=== PATIENT | male | born 1955 | race Caucasian/White ===

== ENCOUNTER 2016-08-16 16:15 | Inpatient (IN) | payer MEDICAID, OTHER ==
[~2016-08-16] VITALS: Ht 198.1 cm; Wt 111.8 kg
[~2016-08-16 16:15] MED LIST: AMIODARONE HCL 150 MG/3 ML VIAL IV ONE; DICL-86 PO; EPINEPHrine HCL (1:10,000) 1 MG/10 ML SYRINGE IV ONE; MAGNESIUM SULFATE 40 MEQ/10 ML VIAL IV ONE; METH500T3 PO; TAB-TAB PO; ZOCO40TA PO
[2016-08-16 16:17] VITALS: BP 146/97; PULSE 89; RESP 22; TEMP 98.3; O2SAT 100
[2016-08-16] MEDS ORDERED: SODIUM CHLOR 0.9% 1000 ML INJ 1,000 ML IV ONE (16:18)
[2016-08-16] MEDS ORDERED: MORPHINE SULFATE 8 MG/ML INJ ONE (16:18)
[2016-08-16] MEDS ORDERED: HEPARIN SODIUM - IV 10,000 UNITS/10 ML VIAL IV STA (16:18)
[2016-08-16] MEDS ORDERED: ASPIRIN 81 MG CHEW TAB ONE (16:19)
[2016-08-16] MEDS ORDERED: HEPARIN SODIUM - IV 10,000 UNITS/10 ML VIAL ONE ×2 (16:19→16:39)
--- NOTE | 2016-08-16 16:28 | PD ---
HPI Chief Complaint: STEMI Alert Time Seen by Provider: 16:18 Travel History International Travel<30 days: No Contact w/Intl Traveler<30days: No Traveled to known affect area: No History of Present Illness HPI The patient's 60 years old. He arrives by EMS due to one hour of chest pressure. He describes some radiation of the chest pressure to his neck. There is a crampy quality noted as well. In the ER the patient states the pain is 5/10. It's unclear what was relayed to the EMS with regard to severity. The patient ate chicken and waffles this morning. He felt indigestion afterwards. He reports a one pack per day smoking history. He reports diet controlled diabetes with a blood sugar of approximately 450 per EMS. Upon the patient's arrival to the ER STEMI alert was activated. Cardiopulmonary monitoring and pulse oximetry was initiated along with bilateral upper extremity axis. Case was discussed with Dr. Ashby at 1625 who agreed to pursue catheterization. Upon returning to the pt's room the patient was awake and then complained of feeling hot and then developed ventricular fibrillation. Pacer pads were already on and the patient was shocked at 200 J. He immediately regained consciousness and the pulse was about 100 and irregular. Last blood pressure prior to ER Department or to the Iv Therapy Nurse was 213/110. Heparin was transfused. The patient received aspirin. En route to the Iv Therapy Nurse the patient again had an episode of ventricular fibrillation lasting about 5 seconds or so. He was conscious during the episode. Upon arrival to the Iv Therapy Nurse the patient again went into ventricular fibrillation. He was shocked at 360 J and immediately regained consciousness. Continuous cardiopulmonary oximetry was maintained. The patient's nasal cannula was increased to 15 L/m. Throughout the precatheterization course the patient had approximately 9 episodes of ventricular fibrillation and promptly received chest compressions while the monitor was charging and prior to and after electrical defibrillations. A second IV was placed in the right hand after the right antecubital access was lost due to agitation. Soft restraints were applied. At approximately 1715 the patient was intubated after he remained unresponsive for about 30 or 40 seconds while chest compressions were performed. Etomidate and succinylcholine were used. While in the catheterization lab the patient received 2 g of magnesium additionally he received [address] Ashby arrived to the catheterization lab minutes after the intubation was performed. The patient received lidocaine and was prepped for the catheterization, which commenced essentially immediately thereafter. [facility] Past Medical History Cancer: No Cardiovascular Problems: Yes High Cholesterol: Yes Diabetes: Yes Patient Takes Glucophage: No Diminished Hearing: No Diverticulitis: Yes Endocrine: Yes Gastrointestinal Disorders: Yes (DIVERTICULITIS) Genitourinary: No Immune Disorder: No Musculoskeletal: No Neurologic: No Psychiatric: No Reproductive: No Respiratory: No Sickle Cell Disease: No Tetanus Vaccination: Unknown Past Surgical History Abdominal Surgery: Yes (removal of sigmoid colon due to diverticulitis) Other Surgery: Yes Social History Alcohol Use: No (DENIES) Tobacco Use: Yes (1 PPD) Substance Use: No Allergies-Medications (Allergen,Severity, Reaction): Coded Allergies: Codeine (Verified Allergy, Intermediate, ITHCHING, 08/16/16) Percocet (Verified Allergy, Intermediate, ITCHING, 08/16/16) Dilaudid (Verified Adverse Reaction, Severe, HALLUCINATIONS, 08/16/16) Contrast Media (Verified Adverse Reaction, Intermediate, RASH, SKIN PEELING, 08/16/16) Reported Meds & Prescriptions Reported Meds & Active Scripts Active No Active Prescriptions or Reported Medications Review of Systems ROS Limitations: Clinical Condition Physical Exam Narrative GENERAL: 60-year-old male well-nourished well-developed moderate distress SKIN: Warm with diaphoresis. HEAD: Atraumatic. Normocephalic. EYES: Pupils equal and round. No scleral icterus. No injection or drainage. ENT: No nasal bleeding or discharge. Mucous membranes pink and moist. NECK: Trachea midline. Minimal JVD. CARDIOVASCULAR: Irregular. Tachycardia. RESPIRATORY: Speaking in short sentences. Lung sounds present bilaterally. GASTROINTESTINAL: Abdomen soft, non-tender, nondistended. Hepatic and splenic margins not palpable. MUSCULOSKELETAL: Extremities without clubbing, cyanosis, or edema. No obvious deformities. NEUROLOGICAL: Awake and alert. No obvious cranial nerve deficits. Motor grossly within normal limits. Five out of 5 muscle strength in the arms and legs. Normal speech. PSYCHIATRIC: Appropriate anxiety. Data Data Last Documented VS Vital Signs Date Time Temp Pulse Resp B/P Pulse Ox O2 Delivery O2 Flow Rate FiO2 08/16/16 16:35 113 200/110 08/16/16 16:35 Nasal Cannula 2 08/16/16 16:30 24 96 08/16/16 16:17 98.3 VS reviewed Orders Morphine Inj (Morphine Inj) (08/16/16 16:18) Heparin Inj (Heparin Inj) (08/16/16 16:19) Troponin I (08/16/16 16:18) Ckmb (Isoenzyme) Profile (08/16/16 16:18) Complete Blood Count With Diff (08/16/16 16:18) I-Stat Profile (08/16/16 16:18) I-Stat Creatinine (08/16/16 16:18) Calcium (08/16/16 16:18) Magnesium (Mg) (08/16/16 16:18) Prothrombin Time / Inr (Pt) (08/16/16 16:18) Act Partial Throm Time (Ptt) (08/16/16 16:18) B-Type Natriuretic Peptide (08/16/16 16:18) Chest, Single Ap (08/16/16 16:18) Electrocardiogram (08/16/16 16:18) Oxygen Administration (08/16/16 16:18) Iv Access Insert/Monitor (08/16/16 16:18) Oximetry (08/16/16 16:18) Sodium Chlor 0.9% 1000 Ml Inj (Ns 1000 M (08/16/16 16:18) Sodium Chloride 0.9% Flush (Ns Flush) (08/16/16 16:30) Heparin Inj (Heparin Inj) (08/16/16 16:18) Metoprolol Tartrate Inj (Lopressor Inj) (08/16/16 16:30) Aspirin Chew (Aspirin Chew) (08/16/16 16:19) Etomidate Inj (Amidate Inj) (08/16/16 16:35) Succinylcholine Inj (Quelicin Inj) (08/16/16 16:36) Heparin-Ns/Pf Inj (Heparin-Ns/Pf Inj) (08/16/16 16:36) Diphenhydramine Inj (Benadryl Inj) (08/16/16 16:38) Fentanyl Inj (Fentanyl Inj) (08/16/16 16:38) Midazolam Inj (Versed Inj) (08/16/16 16:38) Methylprednisolone So Succ Inj (Solumedr (08/16/16 16:38) Heparin Inj (Heparin Inj) (08/16/16 16:39) Nitroglycerin Inj (Nitroglycerin Inj) (08/16/16 16:39) Admit Order (Ed Use Only) (08/16/16 17:17) CKMB (08/16/16 16:20) CKMB% (08/16/16 16:20) Labs Laboratory Tests Test 08/16/16 16:20 White Blood Count 9.3 TH/MM3 Red Blood Count 5.03 MIL/MM3 Hemoglobin 17.1 GM/DL Bedside Hemoglobin 17.3 G/DL Hematocrit 48.6 % Bedside Hematocrit 51.0 % Mean Corpuscular Volume 96.5 FL Mean Corpuscular Hemoglobin 34.0 PG Mean Corpuscular Hemoglobin 35.2 % Concent Red Cell Distribution Width 13.9 % Platelet Count 176 TH/MM3 Mean Platelet Volume 8.3 FL Neutrophils (%) (Auto) 57.6 % Lymphocytes (%) (Auto) 31.6 % Monocytes (%) (Auto) 8.8 % Eosinophils (%) (Auto) 1.3 % Basophils (%) (Auto) 0.7 % Neutrophils # (Auto) 5.3 TH/MM3 Lymphocytes # (Auto) 2.9 TH/MM3 Monocytes # (Auto) 0.8 TH/MM3 Eosinophils # (Auto) 0.1 TH/MM3 Basophils # (Auto) 0.1 TH/MM3 CBC Comment DIFF FINAL Differential Comment Prothrombin Time 11.3 SEC Prothromb Time International 1.0 RATIO Ratio Activated Partial 28.1 SEC Thromboplast Time Bedside Sodium 135 MMOL/L Bedside Potassium 4.3 MMOL/L Bedside Chloride 102 MMOL/L Bedside Blood Urea Nitrogen 20 MG/DL Bedside Creatinine 0.9 MG/DL Bedside Glucose 471 MG/DL Calcium Level 9.1 MG/DL Magnesium Level 2.2 MG/DL Total Creatine Kinase 114 U/L Creatine Kinase MB 3.3 NG/ML Troponin I 0.12 NG/ML B-Type Natriuretic Peptide 67 PG/ML [facility] Medical Decision Making Medical Screen Exam Complete: Yes Emergency Medical Condition: Yes Medical Record Reviewed: Yes Differential Diagnosis STEMI, unstable angina, coronary vasospasm, PE, PTX, aortic dissection, pericarditis, myocarditis, endocarditis, PNA, esophageal disease, aneurysm, musculoskeletal etiologies, anxiety, cocaine/sympathomimetic abuse Narrative Course CBC & BMP Diagram 08/16/16 16:20 EKG reveals atrial fibrillation with ST elevations in precordial leads and inferior leads consistent with acute myocardial infarction, rate about 148 Troponin 0.12 BNP 67 Last 24 hours Impressions Chest X-Ray 08/16/16 1618 Signed Impressions: Service Date/Time: Tuesday, August 16, 2016 16:15 - CONCLUSION: No acute cardiopulmonary disease. Cristela Maldonado MD Please refer to the history of present illness. Critical Care Narrative Aggregate critical care time was 50 minutes. Time to perform other separately billable procedures was not included in the critical care time. My time did not include minutes spent treating any other patients simultaneously or on activities that did not directly contribute to the patient's treatment. The services I provided to this patient were to treat and/or prevent clinically significant deterioration that could result in: Cardiopulmonary arrest, mortality I provided critical care services requiring my management, as noted below: Chart data review, documentation time, medication orders and management, vital sign assessments/reviewing monitor data, ordering and reviewing lab tests, ordering and interpreting/reviewing x-rays and diagnostic studies, care of the patient and discussion of the patient with the admitting physicians. Physician Communication Physician Communication Dr Ashby [id number] Diagnosis Primary Impression: STEMI (ST elevation myocardial infarction) Qualified Code: I21.3 - ST elevation myocardial infarction (STEMI), unspecified artery Additional Impressions: Cardiac arrest with ventricular fibrillation Cardiopulmonary arrest Admitting Information Admitting Physician Requests: Admit Scripts No Active Prescriptions or Reported Sean Salvador MD Aug 16, 2016 16:28
[2016-08-16 16:30] VITALS: BP 200/115
[2016-08-16] MEDS ORDERED: SODIUM CHLORIDE 0.9% FLUSH 10 ML FLUSH IVF PRN (16:30)
[2016-08-16] MEDS: METOPROLOL TARTRATE 5 MG/5 ML VIAL SLOW IVP SCH ×3 (16:30→16:40)
[2016-08-16 16:35] VITALS: BP 200/110; PULSE 113
[2016-08-16] MEDS ORDERED: ETOMIDATE 20 MG/10 ML VIAL ONE (16:35)
[2016-08-16] MEDS ORDERED: HEPARIN-NS/PF INJ 500 ML ONE (16:36)
[2016-08-16] MEDS ORDERED: SUCCINYLCHOLINE CHLORIDE 200 MG/10 ML VIAL ONE (16:36)
[2016-08-16] MEDS ORDERED: methylPREDNISolone SOD SUCC 125 MG/2 ML VIAL ONE (16:38)
[2016-08-16] MEDS ORDERED: MIDAZOLAM HCL 5 MG/5 ML VIAL ONE ×9 (16:38→18:46)
[2016-08-16] MEDS ORDERED: diphenhydrAMINE HCL 50 MG/ML VIAL ONE (16:38)
[2016-08-16] MEDS ORDERED: NITROGLYCERIN INJ 5 ML ONE (16:39)
[2016-08-16 16:42] LABS: I-STAT POTASSIUM 4.3 MMOL/L (3.5-4.9); I-STAT SODIUM 135 MMOL/L (138-146)
[2016-08-16] MEDS ORDERED: IOHEXOL 350 MG/ML 50 ML BTL (for Cath Lab) OTHER ONE (16:42)
[2016-08-16] MEDS ORDERED: IOHEXOL 350 MG/ML 100 ML BTL (for Cath Lab) OTHER ONE (16:42)
[2016-08-16 16:43] LABS: AUTOMATED NEUTROPHIL # 5.3 TH/MM3 (1.8-7.7); BASOPHIL # 0.1 TH/MM3 (0-0.2); BASOPHIL % 0.7 % (0.0-2.0); EOSINOPHIL # 0.1 TH/MM3 (0-0.4); EOSINOPHIL % 1.3 % (0.0-4.0); HEMATOCRIT 48.6 % (39.0-51.0); HEMO FLAGS DIFF FINAL; LYMPH % 31.6 % (9.0-44.0); LYMPHOCYTE # 2.9 TH/MM3 (1.0-4.8); MEAN CELL VOLUME 96.5 FL (80.0-100.0); MEAN CORPUSCULAR HGB CONC 35.2 % (32.0-36.0); MONO % 8.8 % (0.0-8.0); NEUT % 57.6 % (16.0-70.0); PLATELET COUNT 176 TH/MM3 (150-450); RED BLOOD COUNT 5.03 MIL/MM3 (4.50-5.90); RED CELL DISTRIBUTION WIDTH 13.9 % (11.6-17.2); WHITE BLOOD COUNT 9.3 TH/MM3 (4.0-11.0)
[2016-08-16 16:53] LABS: APTT (PATIENT) 28.1 SEC (24.3-30.1); PROTHROMBIN TIME - PATIENT 11.3 SEC (9.8-11.6)
--- NOTE | 2016-08-16 16:53 | RADRPT ---
EXAM DATE/TIME: 08/16/2016 16:15 [facility] COMPARISON: No previous studies available for comparison. INDICATIONS : Stemi Alert MEDICAL HISTORY : None. SURGICAL HISTORY : None. ENCOUNTER: Initial ACUITY: 1 day PAIN SCORE: 10/10 LOCATION: Bilateral chest FINDINGS: The lungs are clear without infiltrate, nodule, or mass. There is no appreciable pleural effusion fo r technique. Heart and mediastinum are unremarkable. CONCLUSION: No acute cardiopulmonary disease. Cristela Maldonado MD on August 16, 2016 at 16:51 Board Certified Radiologist. This report was verified electronically.
[2016-08-16 17:15] LABS: MAGNESIUM 2.2 MG/DL (1.5-2.5)
[2016-08-16 17:27] LABS: CREATINE KINASE 114 U/L (39-308)
[2016-08-16] MEDS ORDERED: DOPamine INJ PREMIX 500 ML ONE (17:32)
[2016-08-16 17:40] LABS: CKMB 3.3 NG/ML (0.5-3.6)
[2016-08-16] MEDS ORDERED: fentaNYL CITRATE 250 MCG/5 ML AMP ONE (17:41)
[2016-08-16] MEDS ORDERED: CANGRELOR TETRASODIUM 50,000 MCG VIAL IV ONE (17:47)
[2016-08-16] MEDS ORDERED: SODIUM CHLOR 0.9% 250 ML INJ 250 ML ONE (17:54)
[2016-08-16] MEDS ORDERED: VANCOMYCIN HCL 1000 MG VIAL ONE (17:54)
[2016-08-16] MEDS: SODIUM CHLOR 0.9% 1000 ML INJ 1,000 ML IV SCH ×2 (18:37→20:26)
[2016-08-16] MEDS ORDERED: PROPOFOL 500 MG/50 ML INJ 50 ML ONE (18:43)
[2016-08-16] MEDS ORDERED: TICAGRELOR 90 MG TAB PO ONE (18:45)
[2016-08-16] MEDS ORDERED: ATROPINE SULFATE 1 MG/ML VIAL IV PRN (18:45)
[2016-08-16] MEDS ORDERED: ONDANSETRON HCL 4 MG/2 ML VIAL IV PRN ×2 (18:45→19:00)
[2016-08-16] MEDS ORDERED: MISC INFORMATION XX ONE (18:45)
[2016-08-16 18:46] LABS: BLOOD GAS CARBOXYHEMOGLOBIN 1.7 % (0-4); BLOOD GAS HCO3 18 mmol/L (22-26); BLOOD GAS METHEMOGLOBIN 1.4 % (0-2); BLOOD GAS O2 HGB SATURATION 97 % (90-100); BLOOD GAS OXYGEN CONTENT 21.8 Vol % (12.0-20.0); BLOOD GAS PCO2 43 mmHg (38-42); BLOOD GAS PO2 384 mmHg (61-120); BLOOD GAS TOTAL HGB 15.4 G/DL (12.0-16.0); CRITICAL VALUE YES; OXYGEN DEVICE VENTILATOR; TEMP CORR TO 98.6
[2016-08-16 18:47] LABS: DRAW SITE ART LINE; FIO2 100 %; STAT YES; VENT SETTINGS A/C 16/550/0 PEEP
[2016-08-16] MEDS ORDERED: MORPHINE SULFATE 4 MG/ML INJ IV PRN (19:00)
[2016-08-16] MEDS ORDERED: MISCELLANEOUS NURSING INFORMATION XX SCH (19:00)
[2016-08-16] MEDS ORDERED: MIDAZOLAM HCL 2 MG/2 ML VIAL IV PRN (19:00)
[2016-08-16] MEDS ORDERED: CHLORHEXIDINE GLUCONATE 2 % 1 PACK (2 CLOTHS) TOP PRN (19:00)
[2016-08-16] MEDS ORDERED: METOCLOPRAMIDE HCL 10 MG/2 ML VIAL IV PRN (19:00)
[2016-08-16] MEDS ORDERED: SENNOSIDES SYRUP 8.8 MG/5 ML CUP G-TUBE PRN (19:00)
[2016-08-16] MEDS ORDERED: CANGRELOR INJ 50,000 MCG in SODIUM CHLOR 0.9% 250 ML INJ 250 ML IV ONE (19:00)
[2016-08-16] MEDS ORDERED: fentaNYL DRIP 250 ML IV SCH (19:00)
--- NOTE | 2016-08-16 19:09 | MB ---
cc: SHARI PINK DATE OF CONSULTATION: 08/16/2016. REASON FOR CONSULTATION: STEMI. HISTORY OF PRESENT ILLNESS: 60-year-old male with past medical history significant for hypertension, active smoker, obesity who presented to the emergency department from home via EMS with chest pressure that radiated to his neck. EKG rhythm revealed atrial fibrillation with rapid ventricular response and S-T elevation in the inferior leads suggestive of myocardial injury. A STEMI team was activated. Before getting to the label designer the patient coded in the emergency department and subsequently in route to the label designer. The patient had approximately 10 episodes of ventricular fibrillation, which were successfully shocked, CPR given. He was intubated. The patient regained spontaneous circulation. Cardiology has been consulted for further management and evaluation. REVIEW OF SYSTEMS: Review of systems negative except for what is mentioned in the history of present illness. PAST MEDICAL HISTORY: 1. Hypertension. 2. Obesity. 3. Smoking. 4. Diverticulitis. PAST SURGICAL HISTORY: Removal of the sigmoid colon due to diverticulitis. SOCIAL HISTORY: No alcohol. He smokes. No illicit drug use. HOME MEDICATIONS: None. ALLERGIES: 1. CODEINE. 2. PERCOCET. 3. DILAUDID. 4. CONTRAST MEDIA. PHYSICAL EXAMINATION: VITAL SIGNS: 98.3, pulse 89, respiratory rate 22, blood pressure 146/97. GENERAL: He is sedated and intubated and in no acute distress. NECK: No jugular venous distention. No carotid bruits. HEART: Tachycardic. No murmurs, rubs or gallops. LUNGS: Ventilated. ABDOMEN: Obese. Positive bowel sounds. Soft, nontender and nondistended. EXTREMITIES: Cold. Diminished pulses throughout. LABORATORY DATA: Hemoglobin 17, hematocrit 48, platelet count 176,000. INR 1. Sodium 135, potassium 4.3, creatinine 0.9, BUN 20, glucose 471. Troponin 0.12. BNP 67. IMAGING STUDIES: Chest x-ray: No acute cardiopulmonary process. EKGS: EKG shows atrial fibrillation with rapid ventricular response. He also has S-T segment elevation in the inferior leads. ASSESSMENT AND PLAN: 60-year-old male with cardiac risk factors that include hypertension, active smoking and obesity who presented with inferior S-T elevation WI and cardiogenic shock and ventricular fibrillation arrest. The patient is critically ill and he will need emergent percutaneous coronary intervention. The risks and benefits of left heart catheterization / percutaneous coronary intervention have been discussed with the family. The risks include but are not limited to neurovascular trauma, bleeding, infection, acute kidney injury, emergent bypass surgery, stroke and have been explained to the family. The understands the risks and she is willing to proceed. RECOMMENDATIONS: 1. Emergent percutaneous coronary intervention. 2. Continue supportive management. Further therapy to be determined. MD GRISELDA Llamas/NORY /6:47 PM /6:59 PM ARTURO
[2016-08-16] MEDS ORDERED: GLUCAGON 1 MG/ML VIAL OTHER PRN (19:15)
[2016-08-16] MEDS ORDERED: DEXTROSE 50% IN WATER 50 ML VIAL(D50) IV PUSH PRN (19:15)
[2016-08-16] MEDS ORDERED: PHENYLEPHRINE HCL 10 MG/ML VIAL ONE ×2 (19:29)
[2016-08-16] MEDS ORDERED: PHENYLEPH/NS 1000 MCG/10 ML SYR ONE (19:30)
[2016-08-16 19:58] VITALS: O2SAT 100
[2016-08-16 20:00] VITALS: BP_SYST 116; BP_SYST 124; BP_DIAS 68; BP_DIAS 83; PULSE 110; PULSE 99; RESP 18; TEMP 95.2; O2SAT 100
[2016-08-16] MEDS: LORazepam 2 MG/ML VIAL IV PUSH SCH (20:00)
[2016-08-16] MEDS ORDERED: LORazepam 2 MG/ML VIAL IV PUSH ONE (20:00)
--- NOTE | 2016-08-16 20:08 | HHI.HP ---
[facility] Service Critical Care Medicine Primary Care Physician Cleveland Spencer MD, PhD Admission Diagnosis STEMI, VFib Arrest, Cardiopulmonary Arrest, Hyperglycemia Diagnosis: Chief Complaint: STEMI, cardiac arrest Travel History International Travel<30 Days: No Contact w/Intl Traveler <30 Da: No Traveled to Known Affected Are: No History of Present Illness 60 y/o man presented with chest pain, arrested in ED -> lab systems analyst where rescue stent RCA with reperfusion v-fib requiring shock X 9 total. Intubated, ventilated. Escorted to CVICU on vent. Cangrelor finished and Brilinta given down NG tube after 6 minutes from ceasing cangrelor. Patient with NSR at 108, moves 4 limbs with purpose. VERY tolerant to sedation - probable ETOH Hx. Loaded with ativan and scheduled. Will start precedex in a.m. for vent weaning and withdrawal prophylaxis (once we are sure he is not having any more bradycardia problems). Past Family Social History Allergies: Coded Allergies: Codeine (Verified Allergy, Intermediate, ITHCHING, 08/16/16) Percocet (Verified Allergy, Intermediate, ITCHING, 08/16/16) Dilaudid (Verified Adverse Reaction, Severe, HALLUCINATIONS, 08/16/16) Contrast Media (Verified Adverse Reaction, Intermediate, RASH, SKIN PEELING, 08/16/16) Past Medical History Past Medical History Cancer: No Cardiovascular Problems: Yes High Cholesterol: Yes Diabetes: Yes Patient Takes Glucophage: No Diminished Hearing: No Diverticulitis: Yes Endocrine: Yes Gastrointestinal Disorders: Yes (DIVERTICULITIS) Genitourinary: No Immune Disorder: No Musculoskeletal: No Neurologic: No Psychiatric: No Reproductive: No Respiratory: No Sickle Cell Disease: No Tetanus Vaccination: Unknown Past Surgical History Abdominal Surgery: Yes (removal of sigmoid colon due to diverticulitis) Other Surgery: Yes Social History Alcohol Use: No (DENIES) Tobacco Use: Yes (1 PPD) Substance Use: No Allergies-Medications Allergies-Medications (Allergen,Severity, Reaction): Coded Allergies: Codeine (Verified Allergy, Intermediate, ITHCHING, 08/16/16) Percocet (Verified Allergy, Intermediate, ITCHING, 08/16/16) Dilaudid (Verified Adverse Reaction, Severe, HALLUCINATIONS, 08/16/16) Contrast Media (Verified Adverse Reaction, Intermediate, RASH, SKIN PEELING, 4/29/17) Reported Meds & Prescriptions Reported Meds & Active Scripts Active No Active Prescriptions or Reported Medications Physical Exam Vital Signs Vital Signs Date Time Temp Pulse Resp B/P Pulse Ox O2 Delivery O2 Flow Rate FiO2 08/16/16 16:35 113 200/110 08/16/16 16:35 Nasal Cannula 2 08/16/16 16:30 87 24 200/115 96 Nasal Cannula 4 08/16/16 16:26 98 Nasal Cannula 2 08/16/16 16:17 98.3 89 22 146/97 100 Physical Exam P 108, BP 123/72, R 18 vent, sats 97% Head: Normal. Neck: Supple, orally intubated. Lungs: Bilateral crackles, no wheezes. Heart: Tachycardia, RRR. Abdomen: Benign, no guarding. Quiet. Extremities: Toes and fingers blue. Cool. Neuro: Moves 4 limbs with purpose. EDWIN, 2 mm bee. Laboratory Laboratory Tests Test 08/16/16 08/16/16 16:20 18:35 White Blood Count 9.3 Red Blood Count 5.03 Hemoglobin 17.1 Bedside Hemoglobin 17.3 Hematocrit 48.6 Bedside Hematocrit 51.0 Mean Corpuscular Volume 96.5 Mean Corpuscular Hemoglobin 34.0 Mean Corpuscular Hemoglobin 35.2 Concent Red Cell Distribution Width 13.9 Platelet Count 176 Mean Platelet Volume 8.3 Neutrophils (%) (Auto) 57.6 Lymphocytes (%) (Auto) 31.6 Monocytes (%) (Auto) 8.8 Eosinophils (%) (Auto) 1.3 Basophils (%) (Auto) 0.7 Neutrophils # (Auto) 5.3 Lymphocytes # (Auto) 2.9 Monocytes # (Auto) 0.8 Eosinophils # (Auto) 0.1 Basophils # (Auto) 0.1 CBC Comment DIFF FINAL Differential Comment Prothrombin Time 11.3 Prothromb Time International 1.0 Ratio Activated Partial 28.1 Thromboplast Time Bedside Sodium 135 Bedside Potassium 4.3 Bedside Chloride 102 Bedside Blood Urea Nitrogen 20 Bedside Creatinine 0.9 Bedside Glucose 471 Calcium Level 9.1 Magnesium Level 2.2 Total Creatine Kinase 114 Creatine Kinase MB 3.3 Troponin I 0.12 B-Type Natriuretic Peptide 67 Blood Gas Puncture Site ART LINE Blood Gas Patient Temperature 98.6 Blood Gas HCO3 18 Blood Gas Base Excess -8.0 Blood Gas Oxygen Saturation 97 Arterial Blood pH 7.25 Arterial Blood Partial 43 Pressure CO2 Arterial Blood Partial 384 Pressure O2 Arterial Blood Oxygen Content 21.8 Arterial Blood 1.7 Carboxyhemoglobin Arterial Blood Methemoglobin 1.4 Blood Gas Hemoglobin 15.4 Oxygen Delivery Device VENTILATOR Blood Gas Ventilator Setting A/C 16/550/0 PEEP Blood Gas Inspired Oxygen 100 Result Diagram: 08/16/16 1620 Assessment and Plan Assessment and Plan Assessment: 1. Complicated STEMI. 2. Cardiac arrest. 3. Rescue PCI RCA. 4. Ventricular fibrillation. 5. ETOH habituation. 6. Respiratory failure. Plan: 1. PRVC vent. 2. Propofol. 3. Ativan for detox. 4. Protonix. 5. Brilinta after cangrelor stopped. 6. No scd - poor perfusion. 7. Electrolyte protocol. 8. NG. Overall impression: Critically ill and ventilator dependent after cardiac arrest from RCA STEMI. Elevated glucose and ETOH hx further complicate care. Critical Care 60 mins aside from procedures Gilmer Aj MD Aug 16, 2016 20:08
--- NOTE | 2016-08-16 20:10 | PD.PROCEDR ---
Procedure Note Procedure DX: Cardiac Arrest OP: Insertion Left Subclavian Central Venous Line ([id number]) Procedure: Left chest prepped and draped. Left subclavian vein cannulated and wire easily advanced. Catheter passed over wire to 18 cm. Lumens aspirated and flushed. Dressing applied. CXR ordered, will review. Gilmer Aj MD Aug 16, 2016 20:10
--- NOTE | 2016-08-16 20:40 | RADRPT ---
EXAM DATE/TIME: 08/16/2016 20:03 [facility] COMPARISON: CHEST SINGLE AP, August 16, 2016, 16:15. INDICATIONS : ET tube and central line placement. MEDICAL HISTORY : None. SURGICAL HISTORY : None. ENCOUNTER: Subsequent ACUITY: 1 day PAIN SCORE: Non-responsive. LOCATION: Bilateral chest FINDINGS: ET tube is present with tip overlapping approximately 3 cm above the pratik. NG tube is present with tip in the stomach. Left subclavian line is present with tip overlapping the expected region of the S VC. No definite pneumothorax is seen for technique. The lungs are clear without infiltrate, nodule, o r mass. There is no appreciable pleural effusion for technique. Heart and mediastinum are unremarka ble. CONCLUSION: No acute cardiopulmonary disease. Cristela Maldonado MD on August 16, 2016 at 20:38 Board Certified Radiologist. This report was verified electronically.
[2016-08-16] MEDS: PROPOFOL 1000 MG/100 ML INJ 100 ML IV SCH ×3 (21:00→23:00)
[2016-08-16] MEDS: ATORVASTATIN 80 MG TAB PO SCH (21:45)
[2016-08-16] MEDS: INSULIN ASPART SUPPLEMENTAL SCALE SQ SCH (21:45)
[2016-08-16] MEDS ORDERED: FAMOTIDINE 20 MG/2 ML VIAL ONE (21:50)
[2016-08-16] MEDS: PANTOPRAZOLE SODIUM 40 MG VIAL IV SCH (21:53)
[2016-08-16 22:45] VITALS: O2SAT 99
[2016-08-16] MEDS: RESP: ALBUTEROL 2.5 MG/IPRATROPIUM 0.5 MG NEB (PRN) INH (22:47)
[2016-08-17] VITALS (12 sets, daily range): BP systolic 110–144; BP diastolic 56–89; PULSE 92–100; RESP 18–23; TEMP 97–98.3; O2SAT 96–99
[2016-08-17 00:05] LABS: CREATINE KINASE 739 U/L (39-308)
[2016-08-17] MEDS: LORazepam 2 MG/ML VIAL IV PUSH SCH ×5 (00:28→16:52)
[2016-08-17] MEDS: INSULIN ASPART SUPPLEMENTAL SCALE SQ SCH ×5 (00:33→23:45)
[2016-08-17] MEDS: PROPOFOL 1000 MG/100 ML INJ 100 ML IV SCH ×3 (00:42→06:40)
[2016-08-17 00:43] LABS: CKMB 125.1 NG/ML (0.5-3.6)
[2016-08-17] MEDS: RESP: ALBUTEROL 2.5 MG/IPRATROPIUM 0.5 MG NEB (PRN) INH ×2 (03:33→21:05)
[2016-08-17] MEDS: CHLORHEXIDINE GLUCONATE 2 % 1 PACK (2 CLOTHS) TOP SCH (03:42)
--- NOTE | 2016-08-17 04:26 | RADRPT ---
EXAM DATE/TIME: 08/17/2016 03:36 [facility] COMPARISON: CHEST SINGLE AP, August 16, 2016, 20:03. INDICATIONS : Shortness of breath, possible pulmonary disease. MEDICAL HISTORY : None. SURGICAL HISTORY : None. ENCOUNTER: Subsequent ACUITY: 3 days PAIN SCORE: Non-responsive. LOCATION: Bilateral chest FINDINGS: No infiltrate demonstrated. No pleural effusion or pneumothorax. Heart size stable, within normal limits. Endotracheal tube tip is approximately 5 cm above the pratik, not significantly changed. There is a n asogastric tube coiled in the stomach and a left subclavian central venous catheter with tip in the s uperior vena cava. CONCLUSION: No significant change. Lungs remain clear. Barber Colon MD on August 17, 2016 at 4:23 Board Certified Radiologist. This report was verified electronically.
[2016-08-17] MEDS: SODIUM CHLOR 0.9% 1000 ML INJ 1,000 ML IV SCH ×3 (04:37→17:49)
[2016-08-17 04:43] LABS: BLOOD GAS CARBOXYHEMOGLOBIN 1.3 % (0-4); BLOOD GAS HCO3 18 mmol/L (22-26); BLOOD GAS METHEMOGLOBIN 1.4 % (0-2); BLOOD GAS O2 HGB SATURATION 96 % (90-100); BLOOD GAS OXYGEN CONTENT 20.7 Vol % (12.0-20.0); BLOOD GAS PCO2 36 mmHg (38-42); BLOOD GAS PO2 124 mmHg (61-120); BLOOD GAS TOTAL HGB 15.2 G/DL (12.0-16.0); CRITICAL VALUE NO; OXYGEN DEVICE VENTILATOR; TEMP CORR TO 98.6
[2016-08-17 04:44] LABS: DRAW SITE ART LINE; FIO2 40 %; STAT NO; VENT SETTINGS PRVC/AC
[2016-08-17 04:56] LABS: AUTOMATED NEUTROPHIL # 11.5 TH/MM3 (1.8-7.7); BASOPHIL % 0.2 % (0.0-2.0); HEMATOCRIT 44.9 % (39.0-51.0); HEMO FLAGS DIFF FINAL; LYMPH % 5.6 % (9.0-44.0); LYMPHOCYTE # 0.7 TH/MM3 (1.0-4.8); MEAN CELL VOLUME 97.3 FL (80.0-100.0); MEAN CORPUSCULAR HEMOGLOBIN 33.2 PG (27.0-34.0); MEAN CORPUSCULAR HGB CONC 34.1 % (32.0-36.0); MONO % 2.6 % (0.0-8.0); NEUT % 91.6 % (16.0-70.0); PLATELET COUNT 165 TH/MM3 (150-450); RED BLOOD COUNT 4.61 MIL/MM3 (4.50-5.90); RED CELL DISTRIBUTION WIDTH 13.7 % (11.6-17.2); WHITE BLOOD COUNT 12.6 TH/MM3 (4.0-11.0)
[2016-08-17 05:23] LABS: ALKALINE PHOSPHATASE 99 U/L (45-117); ALT (GPT) 258 U/L (12-78); ANION GAP 9 MEQ/L (5-15); AST (GOT) 411 U/L (15-37); BICARBONATE 20.5 MEQ/L (21.0-32.0); BLOOD UREA NITROGEN 14 MG/DL (7-18); CHLORIDE 112 MEQ/L (98-107); GLOMERULAR FILTRATION RATE 98 ML/MIN (>89); HDL CHOLESTEROL 27.9 MG/DL (40.0-60.0); LDL CHOLESTEROL 110 MG/DL (0-99); MAGNESIUM 2.7 MG/DL (1.5-2.5); POTASSIUM 3.9 MEQ/L (3.5-5.1); SODIUM (NA) 141 MEQ/L (136-145); TOTAL BILIRUBIN ADULT 0.4 MG/DL (0.2-1.0)
[2016-08-17] MEDS ORDERED: MAGNESIUM SULFATE INJ 2 GM in SODIUM CHLORIDE 0.9% INJ 96 ML IV PRN (05:45)
[2016-08-17] MEDS ORDERED: POTASSIUM CHLORIDE 25 MEQ EFFERVESCENT TAB PO PRN (05:45)
[2016-08-17] MEDS ORDERED: MAGNESIUM SULFATE INJ 4 GM in SODIUM CHLORIDE 0.9% INJ 92 ML IV PRN (05:45)
[2016-08-17] MEDS ORDERED: MAGNESIUM OXIDE 400 MG TAB PO PRN (05:45)
[2016-08-17] MEDS ORDERED: POTASSIUM CHLOR 40 MEQ PREMIX 100 ML IV PRN ×2 (05:45)
[2016-08-17] MEDS ORDERED: POTASSIUM PHOSPHATE MONOBASIC 500 MG TAB PO/TUBE PRN (05:45)
[2016-08-17] MEDS ORDERED: SODIUM PHOSPHATE INJ 30 MMOL in SODIUM CHLOR 0.9% 250 ML INJ 240 ML IV PRN (05:45)
[2016-08-17] MEDS ORDERED: POTASSIUM CHLOR 20 MEQ PREMIX 100 ML IV PRN (05:45)
[2016-08-17] MEDS ORDERED: SODIUM BICARBONATE 8.4% INJ 50 MEQ/50 ML SYR IV PUSH ONE (05:45)
[2016-08-17] MEDS ORDERED: POTASSIUM PHOSPHATE MONOBASIC 500 MG TAB PO PRN (05:45)
[2016-08-17] MEDS: SODIUM BICARBONATE 8.4% INJ 150 MEQ in WATER STERILE FOR INJ 850 ML IV SCH ×2 (06:39→19:20)
[2016-08-17] MEDS: PANTOPRAZOLE SODIUM 40 MG VIAL IV SCH (08:35)
[2016-08-17] MEDS: ATORVASTATIN 80 MG TAB PO SCH (08:35)
[2016-08-17] MEDS: ASPIRIN 81 MG CHEW TAB PO SCH (08:35)
[2016-08-17] MEDS: TICAGRELOR 90 MG TAB PO SCH ×2 (08:36→21:38)
--- NOTE | 2016-08-17 11:02 | PD.CARD.PN ---
Subjective Subjective Remarks No overnight events Tolerating CPAP Moving all extremities and following commands Objective Medications Current Medications Medications (Trade) Dose Ordered Sig/Ton Route Start Time Stop Time Status Last Admin (NS Flush) 2 ml UNSCH PRN IVF 08/16/16 16:30 (Aspirin Chew) 81 mg DAILY PO 08/17/16 09:00 08/17/16 08:35 (Brilinta) 90 mg BID PO 08/17/16 09:00 08/17/16 08:36 (Atropine Inj) 0.5 mg UNSCH PRN IV 08/16/16 18:45 (Zofran Inj) 4 mg Q4H PRN IV 08/16/16 18:45 Atorvastatin Calcium 80 mg 80 mg DAILY PO 08/16/16 18:45 08/17/16 08:35 (NS 1000 ml Inj) 1,000 ml @ 84 mls/hr [id number] IV 08/16/16 18:59 08/17/16 06:39 (Tylenol) 650 mg Q6H PRN PO 08/16/16 19:00 (Morphine Inj) 4 mg Q2H PRN IV 08/16/16 19:00 (Protonix Inj) 40 mg DAILY IV 08/16/16 19:00 08/17/16 08:35 (Versed Inj) 2 mg Q1H PRN IV 08/16/16 19:00 (Zofran Inj) 4 mg Q6H PRN IV 08/16/16 19:00 (Reglan Inj) 10 mg Q6H PRN IV 08/16/16 19:00 (Senna Liq) 17.6 mg Q12H PRN G-TUBE 08/16/16 19:00 Miscellaneous Information 1 [id number] XX 08/16/16 19:00 (Chlorhexidine 2% Cloth) 3 pack Taper DAILY@04 TOP 08/17/16 04:00 08/13/17 03:59 08/17/16 03:42 Chlorhexidine Gluconate 3 pack 3 pack UNSCH PRN TOP 08/16/16 19:00 Propofol 100 ml @ 0 mls/hr TITRATE IV 08/16/16 19:00 08/17/16 06:40 (fentaNYL DRIP) 250 ml @ 0 mls/hr TITRATE IV 08/16/16 19:00 (D50w (Vial) Inj) 25 ml UNSCH PRN IV PUSH 08/16/16 19:15 (Glucagon Inj) 1 mg UNSCH PRN OTHER 08/16/16 19:15 (NovoLOG SUPPLEMENTAL SCALE) 1 Q6H SQ 08/16/16 19:15 08/17/16 05:51 Lorazepam 1 mg 1 mg Q4H IV PUSH 08/16/16 20:00 08/17/16 16:00 08/17/16 08:36 Sodium Bicarbonate 150 meq/Sterile Water 1,000 ml @ 75 mls/hr [id number] IV 08/17/16 06:00 08/17/16 06:39 Potassium Chloride 100 ml @ 50 mls/hr Q2H PRN IV 08/17/16 05:45 (KCl 20 Meq Premix Inj) 100 ml @ 50 mls/hr Q2H PRN IV 08/17/16 05:45 Potassium Bicarb/ Potassium Chloride 50 meq 50 meq UNSCH PRN PO 08/17/16 05:45 Potassium Chloride 100 ml @ 25 mls/hr UNSCH PRN IV 08/17/16 05:45 Potassium Chloride 100 ml @ 50 mls/hr Q2H PRN IV 08/17/16 05:45 (Magnesium Sulfate Inj/NS Inj) 100 ml @ 50 mls/hr UNSCH PRN IV 08/17/16 05:45 Magnesium Oxide 800 mg 800 mg UNSCH PRN PO 08/17/16 05:45 (Magnesium Sulfate Inj/NS Inj) 100 ml @ 50 mls/hr UNSCH PRN IV 08/17/16 05:45 Potassium Phosphate 2000 mg 2,000 mg Q4H PRN PO 08/17/16 05:45 (Sodium Phosphate Inj/NS 250 ml Inj) 250 ml @ 42 mls/hr UNSCH PRN IV 08/17/16 05:45 08/17/16 06:41 (K-Phos) 2,000 mg UNSCH PRN PO/TUBE 08/17/16 05:45 Vital Signs / I&O Vital Signs Date Time Temp Pulse Resp B/P Pulse Ox O2 Delivery O2 Flow Rate FiO2 08/17/16 08:00 40 08/17/16 07:00 98.0 94 18 138/89 97 119/67 08/17/16 07:00 94 08/17/16 04:21 99 40 08/17/16 04:00 97.3 92 18 111/74 99 110/56 08/17/16 04:00 92 08/17/16 03:30 40 08/17/16 00:56 98 40 08/17/16 00:00 97.0 100 18 116/78 98 111/68 08/17/16 00:00 100 08/16/16 23:00 40 08/16/16 22:45 99 40 08/16/16 20:00 50 08/16/16 20:00 110 08/16/16 20:00 95.2 99 18 124/83 100 116/68 08/16/16 19:58 100 50 08/16/16 19:00 100 08/16/16 16:35 113 200/110 08/16/16 16:35 Nasal Cannula 2 08/16/16 16:30 87 24 200/115 96 Nasal Cannula 4 08/16/16 16:26 98 Nasal Cannula 2 08/16/16 16:17 98.3 89 22 146/97 100 I/O 08/16/16 08/16/16 08/16/16 08/17/16 08/17/16 08/17/16 07:00 15:00 23:00 07:00 15:00 23:00 Intake Total 2155 ml Output Total 4300 ml Balance -2145 ml Intake Oral 0 ml IV Total 1975 ml Tube Irrigant 180 ml Output Urine Total 4150 ml Gastric Drainage Total 150 ml # Bowel Movements 0 Physical Exam GENERAL: Well-nourished, well-developed patient. intubated. SKIN: Warm and dry. HEAD: Normocephalic. EYES: No scleral icterus. No injection or drainage. NECK: Supple, trachea midline. No JVD or lymphadenopathy. CARDIOVASCULAR: Regular rate and rhythm without murmurs, gallops, or rubs. RESPIRATORY: Breath sounds equal bilaterally. No accessory muscle use. GASTROINTESTINAL: Abdomen soft, non-tender, nondistended. EXTREMITIES: No cyanosis, or edema. NEUROLOGICAL: Awake, alert, moving all extremities. Following commands Laboratory Laboratory Tests Test 08/16/16 08/16/16 08/16/16 08/17/16 16:20 18:35 22:45 04:32 White Blood Count 9.3 TH/MM3 Red Blood Count 5.03 MIL/MM3 Hemoglobin 17.1 GM/DL Bedside Hemoglobin 17.3 G/DL Hematocrit 48.6 % Bedside Hematocrit 51.0 % Mean Corpuscular Volume 96.5 FL Mean Corpuscular Hemoglobin 34.0 PG Mean Corpuscular Hemoglobin 35.2 % Concent Red Cell Distribution Width 13.9 % Platelet Count 176 TH/MM3 Mean Platelet Volume 8.3 FL Neutrophils (%) (Auto) 57.6 % Lymphocytes (%) (Auto) 31.6 % Monocytes (%) (Auto) 8.8 % Eosinophils (%) (Auto) 1.3 % Basophils (%) (Auto) 0.7 % Neutrophils # (Auto) 5.3 TH/MM3 Lymphocytes # (Auto) 2.9 TH/MM3 Monocytes # (Auto) 0.8 TH/MM3 Eosinophils # (Auto) 0.1 TH/MM3 Basophils # (Auto) 0.1 TH/MM3 CBC Comment DIFF FINAL Differential Comment Prothrombin Time 11.3 SEC Prothromb Time International 1.0 RATIO Ratio Activated Partial 28.1 SEC Thromboplast Time Bedside Sodium 135 MMOL/L Bedside Potassium 4.3 MMOL/L Bedside Chloride 102 MMOL/L Bedside Blood Urea Nitrogen 20 MG/DL Bedside Creatinine 0.9 MG/DL Bedside Glucose 471 MG/DL Calcium Level 9.1 MG/DL Magnesium Level 2.2 MG/DL Total Creatine Kinase 114 U/L 739 U/L Creatine Kinase MB 3.3 NG/ML 125.1 NG/ML Troponin I 0.12 NG/ML GREATER THAN 40.00 NG/ML B-Type Natriuretic Peptide 67 PG/ML Blood Gas Puncture Site ART LINE ART LINE Blood Gas Patient Temperature 98.6 98.6 Blood Gas HCO3 18 mmol/L 18 mmol/L Blood Gas Base Excess -8.0 mmol/L -7.0 mmol/L Blood Gas Oxygen Saturation 97 % 96 % Arterial Blood pH 7.25 7.32 Arterial Blood Partial 43 mmHg 36 mmHg Pressure CO2 Arterial Blood Partial 384 mmHg 124 mmHg Pressure O2 Arterial Blood Oxygen Content 21.8 Vol % 20.7 Vol % Arterial Blood 1.7 % 1.3 % Carboxyhemoglobin Arterial Blood Methemoglobin 1.4 % 1.4 % Blood Gas Hemoglobin 15.4 G/DL 15.2 G/DL Oxygen Delivery Device VENTILATOR VENTILATOR Blood Gas Ventilator Setting A/C 16/550/0 PRVC/AC PEEP Blood Gas Inspired Oxygen 100 % 40 % Nasal Screen MRSA (PCR) MRSA NOT DETECTED Creatine Kinase MB % 16.9 % Test 08/17/16 04:35 White Blood Count 12.6 TH/MM3 Red Blood Count 4.61 MIL/MM3 Hemoglobin 15.3 GM/DL Hematocrit 44.9 % Mean Corpuscular Volume 97.3 FL Mean Corpuscular Hemoglobin 33.2 PG Mean Corpuscular Hemoglobin 34.1 % Concent Red Cell Distribution Width 13.7 % Platelet Count 165 TH/MM3 Mean Platelet Volume 7.9 FL Neutrophils (%) (Auto) 91.6 % Lymphocytes (%) (Auto) 5.6 % Monocytes (%) (Auto) 2.6 % Eosinophils (%) (Auto) 0.0 % Basophils (%) (Auto) 0.2 % Neutrophils # (Auto) 11.5 TH/MM3 Lymphocytes # (Auto) 0.7 TH/MM3 Monocytes # (Auto) 0.3 TH/MM3 Eosinophils # (Auto) 0.0 TH/MM3 Basophils # (Auto) 0.0 TH/MM3 CBC Comment DIFF FINAL Differential Comment Sodium Level 141 MEQ/L Potassium Level 3.9 MEQ/L Chloride Level 112 MEQ/L Carbon Dioxide Level 20.5 MEQ/L Anion Gap 9 MEQ/L Blood Urea Nitrogen 14 MG/DL Creatinine 0.81 MG/DL Estimat Glomerular Filtration 98 ML/MIN Rate Random Glucose 299 MG/DL Lactic Acid Level 0.7 mmol/L Calcium Level 7.8 MG/DL Phosphorus Level 1.8 MG/DL Magnesium Level 2.7 MG/DL Total Bilirubin 0.4 MG/DL Aspartate Amino Transf 411 U/L (AST/SGOT) Alanine Aminotransferase 258 U/L (ALT/SGPT) Alkaline Phosphatase 99 U/L Troponin I GREATER THAN 40.00 NG/ML Total Protein 6.3 GM/DL Albumin 3.4 GM/DL Triglycerides Level 373 MG/DL Cholesterol Level 212 MG/DL LDL Cholesterol 110 MG/DL HDL Cholesterol 27.9 MG/DL Cholesterol/HDL Ratio 7.59 RATIO Imaging Last Impressions Chest X-Ray 08/17/16 0400 Signed Impressions: Service Date/Time: Wednesday, August 17, 2016 03:36 - CONCLUSION: No significant change. Lungs remain clear. Barber Colon MD Assessment and Plan Problem List: (1) STEMI (ST elevation myocardial infarction) Assessment and Plan: s/p PCI/LA to Proximal RCA Intubated. Tolerating CPAP. Afebrile and HD stable Recommendations: 1. DAPT with ASA and Brilinta 2. Start BB and ACEi as tolerated by BP and HR 3. Cont Lipitor 4. 2Dechocardiogram to assess LV systolic function 5. Cont Telemetry monitoring 6. Extubate 7. Early ambulation and incentive spirometry (2) Tobacco dependence, continuous (3) Cardiopulmonary arrest (4) Cardiac arrest with ventricular fibrillation Problem Qualifiers (1) STEMI (ST elevation myocardial infarction): Qualified Code: I21.3 - ST elevation myocardial infarction (STEMI), unspecified artery Graeme Ewing MD Aug 17, 2016 11:02
--- NOTE | 2016-08-17 11:10 | HHI.CCPN ---
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 Intubated, ventilated. Escorted to CVICU on vent. Cangrelor finished and Brilinta given down NG tube after 6 minutes from ceasing cangrelor. Patient with NSR at 108, moves 4 limbs with purpose. VERY tolerant to sedation - probable ETOH Hx. Loaded with ativan and scheduled. Will start precedex in a.m. for vent weaning and withdrawal prophylaxis (once we are sure he is not having any more bradycardia problems). 08/17: , Following commands, moving all for x-rays. Orally intubated on mechanical ventilation at the time of my evaluation. Objective Vital Signs Date Time Temp Pulse Resp B/P Pulse Ox O2 Delivery O2 Flow Rate FiO2 08/17/16 08:00 40 08/17/16 07:00 98.0 94 18 138/89 97 119/67 08/16/16 16:35 Nasal Cannula 2 Result Diagram: 08/17/16 0435 08/17/16 0435 Other Results Laboratory Tests Test 08/16/16 08/16/16 08/16/16 08/17/16 16:20 18:35 22:45 04:32 White Blood Count 9.3 TH/MM3 Red Blood Count 5.03 MIL/MM3 Hemoglobin 17.1 GM/DL Bedside Hemoglobin 17.3 G/DL Hematocrit 48.6 % Bedside Hematocrit 51.0 % Mean Corpuscular Volume 96.5 FL Mean Corpuscular Hemoglobin 34.0 PG Mean Corpuscular Hemoglobin 35.2 % Concent Red Cell Distribution Width 13.9 % Platelet Count 176 TH/MM3 Mean Platelet Volume 8.3 FL Neutrophils (%) (Auto) 57.6 % Lymphocytes (%) (Auto) 31.6 % Monocytes (%) (Auto) 8.8 % Eosinophils (%) (Auto) 1.3 % Basophils (%) (Auto) 0.7 % Neutrophils # (Auto) 5.3 TH/MM3 Lymphocytes # (Auto) 2.9 TH/MM3 Monocytes # (Auto) 0.8 TH/MM3 Eosinophils # (Auto) 0.1 TH/MM3 Basophils # (Auto) 0.1 TH/MM3 CBC Comment DIFF FINAL Differential Comment Prothrombin Time 11.3 SEC Prothromb Time International 1.0 RATIO Ratio Activated Partial 28.1 SEC Thromboplast Time Bedside Sodium 135 MMOL/L Bedside Potassium 4.3 MMOL/L Bedside Chloride 102 MMOL/L Bedside Blood Urea Nitrogen 20 MG/DL Bedside Creatinine 0.9 MG/DL Bedside Glucose 471 MG/DL Calcium Level 9.1 MG/DL Magnesium Level 2.2 MG/DL Total Creatine Kinase 114 U/L 739 U/L Creatine Kinase MB 3.3 NG/ML 125.1 NG/ML Troponin I 0.12 NG/ML GREATER THAN 40.00 NG/ML B-Type Natriuretic Peptide 67 PG/ML Blood Gas Puncture Site ART LINE ART LINE Blood Gas Patient Temperature 98.6 98.6 Blood Gas HCO3 18 mmol/L 18 mmol/L Blood Gas Base Excess -8.0 mmol/L -7.0 mmol/L Blood Gas Oxygen Saturation 97 % 96 % Arterial Blood pH 7.25 7.32 Arterial Blood Partial 43 mmHg 36 mmHg Pressure CO2 Arterial Blood Partial 384 mmHg 124 mmHg Pressure O2 Arterial Blood Oxygen Content 21.8 Vol % 20.7 Vol % Arterial Blood 1.7 % 1.3 % Carboxyhemoglobin Arterial Blood Methemoglobin 1.4 % 1.4 % Blood Gas Hemoglobin 15.4 G/DL 15.2 G/DL Oxygen Delivery Device VENTILATOR VENTILATOR Blood Gas Ventilator Setting A/C 16/550/0 PRVC/AC PEEP Blood Gas Inspired Oxygen 100 % 40 % Nasal Screen MRSA (PCR) MRSA NOT DETECTED Creatine Kinase MB % 16.9 % Test 08/17/16 04:35 White Blood Count 12.6 TH/MM3 Red Blood Count 4.61 MIL/MM3 Hemoglobin 15.3 GM/DL Hematocrit 44.9 % Mean Corpuscular Volume 97.3 FL Mean Corpuscular Hemoglobin 33.2 PG Mean Corpuscular Hemoglobin 34.1 % Concent Red Cell Distribution Width 13.7 % Platelet Count 165 TH/MM3 Mean Platelet Volume 7.9 FL Neutrophils (%) (Auto) 91.6 % Lymphocytes (%) (Auto) 5.6 % Monocytes (%) (Auto) 2.6 % Eosinophils (%) (Auto) 0.0 % Basophils (%) (Auto) 0.2 % Neutrophils # (Auto) 11.5 TH/MM3 Lymphocytes # (Auto) 0.7 TH/MM3 Monocytes # (Auto) 0.3 TH/MM3 Eosinophils # (Auto) 0.0 TH/MM3 Basophils # (Auto) 0.0 TH/MM3 CBC Comment DIFF FINAL Differential Comment Sodium Level 141 MEQ/L Potassium Level 3.9 MEQ/L Chloride Level 112 MEQ/L Carbon Dioxide Level 20.5 MEQ/L Anion Gap 9 MEQ/L Blood Urea Nitrogen 14 MG/DL Creatinine 0.81 MG/DL Estimat Glomerular Filtration 98 ML/MIN Rate Random Glucose 299 MG/DL Lactic Acid Level 0.7 mmol/L Calcium Level 7.8 MG/DL Phosphorus Level 1.8 MG/DL Magnesium Level 2.7 MG/DL Total Bilirubin 0.4 MG/DL Aspartate Amino Transf 411 U/L (AST/SGOT) Alanine Aminotransferase 258 U/L (ALT/SGPT) Alkaline Phosphatase 99 U/L Troponin I GREATER THAN 40.00 NG/ML Total Protein 6.3 GM/DL Albumin 3.4 GM/DL Triglycerides Level 373 MG/DL Cholesterol Level 212 MG/DL LDL Cholesterol 110 MG/DL HDL Cholesterol 27.9 MG/DL Cholesterol/HDL Ratio 7.59 RATIO Imaging Last Impressions Chest X-Ray 08/17/16 0400 Signed Impressions: Service Date/Time: Wednesday, August 17, 2016 03:36 - CONCLUSION: No significant change. Lungs remain clear. Barber Colon MD Objective Remarks HEENT/ Neuro: No pallor or icterus Neck: Supple, orally intubated. Lungs: On mechanical ventilation, good air entry bilaterally, no wheezing or crackles. Heart: Tachycardia, RRR. Abdomen: Benign, no guarding. Quiet. Extremities: Toes and fingers blue. Cool. Neuro: Moves 4 limbs with purpose. EDWIN, 2 mm bee. A/P Assessment and Plan Assessment: 1. Complicated STEMI. 2. Cardiac arrest. 3. Rescue PCI RCA. 4. Ventricular fibrillation. 5. ETOH habituation. 6. Respiratory failure. Plan: 1. PRVC vent. 2. Sedation vacation, neuro checks. Initiated C Pap trial 3. Ativan for detox. 4. Protonix. 5. Brilinta after cangrelor stopped. 6. No scd - poor perfusion. 7. Electrolyte protocol. 8. NPO Addendum: Patient tolerated C Pap trial and extubation ordered. Discussed with Dr. Ashby. Austin Mcgowan MD Aug 17, 2016 11:10
[2016-08-17] MEDS: POTASSIUM CHLOR 20 MEQ PREMIX 100 ML IV PRN ×2 (16:53→18:28)
[2016-08-17] MEDS: NICOTINE 21 MG/24 HR PATCH T-DERMAL SCH (17:41)
--- NOTE | 2016-08-17 18:37 | EKG ---
Date Performed: 08/17/2016 Time Performed: 06:57:36 PTAGE: 60 years EKG: Sinus rhythm with borderline 1st degree A-V block Consider left atrial abnormality Incomplete right bundle branch block Abnormal ECG PREVIOUS TRACING : 08/17/2016 01.40 Compared to prior tracing no significant change DOCTOR: Melody Ruvalcaba Interpretating Date/Time 08/17/2016 18:36:12
--- NOTE | 2016-08-17 18:43 | EKG ---
Date Performed: 08/17/2016 Time Performed: 01:40:34 PTAGE: 60 years EKG: Sinus tachycardia Consider left atrial abnormality Borderline ECG PREVIOUS TRACING : 08/16/2016 20.04 Compared to prior tracing no significant change DOCTOR: Melody Ruvalcaba Interpretating Date/Time 08/17/2016 18:41:30
[2016-08-17] MEDS: ACETAMINOPHEN 325 MG TAB PO PRN (21:49)
--- NOTE | 2016-08-17 22:39 | EKG ---
Date Performed: 08/16/2016 Time Performed: 20:04:58 PTAGE: 60 years EKG: Sinus tachycardia with 1st degree A-V block Suspect reversed leads Consider left atrial abn ormality IV conduction defect Lateral infarct - age undetermined Inferior T wave changes are nonspeci fic Abnormal ECG PREVIOUS TRACING : 08/16/2016 16.17 Compared to the previous tracing a fib w RVR no longer pres ent DOCTOR: Melody Ruvalcaba Interpretating Date/Time 08/17/2016 22:38:16
--- NOTE | 2016-08-17 22:45 | EKG ---
Date Performed: 08/16/2016 Time Performed: 16:17:03 PTAGE: 60 years EKG: ATRIAL FIBRILLATION WITH RAPID VENTRICULAR RESPONSE POSSIBLE RIGHT VENTRICULAR CONDUCTION D ELAY NONSPECIFIC ST & T-WAVE ABNORMALITY ABNORMAL ECG Compared to the PREVIOUS TRACING SR no longer present DOCTOR: Melody Ruvalcaba Interpretating Date/Time 08/17/2016 22:44:08
[2016-08-18] VITALS (16 sets, daily range): BP systolic 116–142; BP diastolic 77–94; PULSE 81–107; RESP 16–20; TEMP 96.7–98.7; O2SAT 94–98
[2016-08-18] MEDS: CHLORHEXIDINE GLUCONATE 2 % 1 PACK (2 CLOTHS) TOP SCH (04:00)
[2016-08-18] MEDS: INSULIN ASPART SUPPLEMENTAL SCALE SQ SCH ×3 (06:13→20:22)
[2016-08-18] MEDS: ACETAMINOPHEN 325 MG TAB PO PRN (06:33)
[2016-08-18] MEDS: SODIUM CHLOR 0.9% 1000 ML INJ 1,000 ML IV SCH ×2 (06:44→18:16)
[2016-08-18] MEDS: SODIUM BICARBONATE 8.4% INJ 150 MEQ in WATER STERILE FOR INJ 850 ML IV SCH ×2 (08:40→22:00)
[2016-08-18] MEDS ORDERED: PILL SPLITTER OTHER PRN (09:00)
[2016-08-18] MEDS: REMOVE OLD PATCH T-DERMAL SCH (09:00)
[2016-08-18] MEDS: ASPIRIN 81 MG CHEW TAB PO SCH (09:45)
[2016-08-18] MEDS: PANTOPRAZOLE SODIUM 40 MG VIAL IV SCH (09:45)
[2016-08-18] MEDS: LISINOPRIL 5 MG TAB PO SCH (09:46)
[2016-08-18] MEDS: ATORVASTATIN 80 MG TAB PO SCH (09:46)
[2016-08-18] MEDS: TICAGRELOR 90 MG TAB PO SCH ×2 (09:46→20:22)
[2016-08-18] MEDS: METOPROLOL TARTRATE 25 MG TAB PO SCH ×2 (09:47→20:22)
[2016-08-18] MEDS: NICOTINE 21 MG/24 HR PATCH T-DERMAL SCH (09:56)
[2016-08-18] MEDS: ACETAMINOPHEN/HYDROcodone 325 MG/5 MG TAB PO PRN ×2 (09:59→18:12)
[2016-08-18 10:23] LABS: AUTOMATED NEUTROPHIL # 10.3 TH/MM3 (1.8-7.7); BASOPHIL % 0.2 % (0.0-2.0); EOSINOPHIL % 0.2 % (0.0-4.0); HEMATOCRIT 40.3 % (39.0-51.0); HEMO FLAGS DIFF FINAL; LYMPH % 18.5 % (9.0-44.0); LYMPHOCYTE # 2.5 TH/MM3 (1.0-4.8); MEAN CELL VOLUME 97.8 FL (80.0-100.0); MEAN CORPUSCULAR HEMOGLOBIN 32.8 PG (27.0-34.0); MEAN CORPUSCULAR HGB CONC 33.5 % (32.0-36.0); MONO % 4.5 % (0.0-8.0); NEUT % 76.6 % (16.0-70.0); PLATELET COUNT 143 TH/MM3 (150-450); RED BLOOD COUNT 4.13 MIL/MM3 (4.50-5.90); RED CELL DISTRIBUTION WIDTH 14.3 % (11.6-17.2); WHITE BLOOD COUNT 13.4 TH/MM3 (4.0-11.0)
--- NOTE | 2016-08-18 10:45 | PD.CARD.PN ---
Subjective Subjective Remarks no overnight events Extubated yesterday OOB Tolerating meds Objective Medications Current Medications Medications (Trade) Dose Ordered Sig/Ton Route Start Time Stop Time Status Last Admin (NS Flush) 2 ml UNSCH PRN IVF 08/16/16 16:30 (Aspirin Chew) 81 mg DAILY PO 08/17/16 09:00 08/18/16 09:45 (Brilinta) 90 mg BID PO 08/17/16 09:00 08/18/16 09:46 (Atropine Inj) 0.5 mg UNSCH PRN IV 08/16/16 18:45 (Zofran Inj) 4 mg Q4H PRN IV 08/16/16 18:45 Atorvastatin Calcium 80 mg 80 mg DAILY PO 08/16/16 18:45 08/18/16 09:46 (NS 1000 ml Inj) 1,000 ml @ 84 mls/hr [id number] IV 08/16/16 18:59 08/17/16 06:39 (Tylenol) 650 mg Q6H PRN PO 08/16/16 19:00 08/18/16 06:33 (Morphine Inj) 4 mg Q2H PRN IV 08/16/16 19:00 08/17/16 21:50 (Protonix Inj) 40 mg DAILY IV 08/16/16 19:00 08/18/16 09:45 (Versed Inj) 2 mg Q1H PRN IV 08/16/16 19:00 (Zofran Inj) 4 mg Q6H PRN IV 08/16/16 19:00 (Reglan Inj) 10 mg Q6H PRN IV 08/16/16 19:00 (Senna Liq) 17.6 mg Q12H PRN G-TUBE 08/16/16 19:00 Miscellaneous Information 1 Q361D XX 08/16/16 19:00 (Chlorhexidine 2% Cloth) 3 pack Taper DAILY@04 TOP 08/17/16 04:00 08/13/17 03:59 08/18/16 04:00 Chlorhexidine Gluconate 3 pack 3 pack UNSCH PRN TOP 08/16/16 19:00 Propofol 100 ml @ 0 mls/hr TITRATE IV 08/16/16 19:00 08/17/16 06:40 (fentaNYL DRIP) 250 ml @ 0 mls/hr TITRATE IV 08/16/16 19:00 (D50w (Vial) Inj) 25 ml UNSCH PRN IV PUSH 08/16/16 19:15 (Glucagon Inj) 1 mg UNSCH PRN OTHER 08/16/16 19:15 Insulin Aspart 1 1 Q6H SQ 08/16/16 19:15 08/18/16 06:13 Sodium Bicarbonate 150 meq/Sterile Water 1,000 ml @ 75 mls/hr [id number] IV 08/17/16 06:00 08/17/16 06:39 Potassium Chloride 100 ml @ 50 mls/hr Q2H PRN IV 08/17/16 05:45 08/17/16 20:35 (KCl 20 Meq Premix Inj) 100 ml @ 50 mls/hr Q2H PRN IV 08/17/16 05:45 08/17/16 18:28 Potassium Bicarb/ Potassium Chloride 50 meq 50 meq UNSCH PRN PO 08/17/16 05:45 Potassium Chloride 100 ml @ 25 mls/hr UNSCH PRN IV 08/17/16 05:45 Potassium Chloride 100 ml @ 50 mls/hr Q2H PRN IV 08/17/16 05:45 (Magnesium Sulfate Inj/NS Inj) 100 ml @ 50 mls/hr UNSCH PRN IV 08/17/16 05:45 Magnesium Oxide 800 mg 800 mg UNSCH PRN PO 08/17/16 05:45 (Magnesium Sulfate Inj/NS Inj) 100 ml @ 50 mls/hr UNSCH PRN IV 08/17/16 05:45 Potassium Phosphate 2000 mg 2,000 mg Q4H PRN PO 08/17/16 05:45 (Sodium Phosphate Inj/NS 250 ml Inj) 250 ml @ 42 mls/hr UNSCH PRN IV 08/17/16 05:45 08/17/16 06:41 (K-Phos) 2,000 mg UNSCH PRN PO/TUBE 08/17/16 05:45 (Habitrol 21 Mg Patch.24 Hr) 1 patch DAILY T-DERMAL 08/17/16 18:00 08/18/16 09:56 Miscellaneous Information 1 DAILY T-DERMAL 08/18/16 09:00 08/18/16 09:00 (Lopressor) 12.5 mg BID PO 08/18/16 09:00 08/18/16 09:47 (Prinivil) 5 mg DAILY PO 08/18/16 09:00 08/18/16 09:46 (Pill Splitter) 1 ea UNSCH PRN OTHER 08/18/16 09:00 ([place] 5-325 Mg) 1 tab Q8H PRN PO 08/18/16 09:45 08/18/16 09:59 Vital Signs / I&O Vital Signs Date Time Temp Pulse Resp B/P Pulse Ox O2 Delivery O2 Flow Rate FiO2 08/18/16 09:44 16 08/18/16 07:57 98.5 88 16 127/88 96 08/18/16 07:57 94 08/18/16 07:15 96 Nasal Cannula 2.00 08/18/16 04:00 96.7 92 18 116/78 94 08/18/16 04:00 90 08/18/16 00:00 97.6 95 18 119/77 96 Arterial Line 08/18/16 00:00 93 08/17/16 22:00 18 08/17/16 21:05 96 Nasal Cannula 2.00 08/17/16 20:00 93 08/17/16 20:00 98.3 93 18 118/74 97 08/17/16 15:00 93 08/17/16 15:00 98.3 93 21 115/66 98 08/17/16 11:10 97 Nasal Cannula 4.00 08/17/16 11:05 97 Nasal Cannula 4.00 08/17/16 11:05 97 Nasal Cannula 4 08/17/16 11:00 97.9 99 23 144/89 97 144/84 08/17/16 11:00 99 I/O 08/17/16 08/17/16 08/17/16 08/18/16 08/18/16 08/18/16 07:00 15:00 23:00 07:00 15:00 23:00 Intake Total 2155 ml 2683 ml 1876 ml Output Total 4300 ml 1230 ml 950 ml Balance -2145 ml 1453 ml 926 ml Intake Oral 0 ml 480 ml 1500 ml IV Total 1975 ml 2203 ml 376 ml Tube Irrigant 180 ml Output Urine Total 4150 ml 1230 ml 950 ml Gastric Drainage Total 150 ml # Bowel Movements 0 1 Physical Exam GENERAL: Well-nourished, well-developed patient. intubated. SKIN: Warm and dry. HEAD: Normocephalic. EYES: No scleral icterus. No injection or drainage. NECK: Supple, trachea midline. No JVD or lymphadenopathy. CARDIOVASCULAR: Regular rate and rhythm without murmurs, gallops, or rubs. RESPIRATORY: Breath sounds equal bilaterally. No accessory muscle use. GASTROINTESTINAL: Abdomen soft, non-tender, nondistended. EXTREMITIES: No cyanosis, or edema. NEUROLOGICAL: Awake, alert, moving all extremities. Following commands Laboratory Laboratory Tests Test 08/18/16 09:40 White Blood Count 13.4 TH/MM3 Red Blood Count 4.13 MIL/MM3 Hemoglobin 13.5 GM/DL Hematocrit 40.3 % Mean Corpuscular Volume 97.8 FL Mean Corpuscular Hemoglobin 32.8 PG Mean Corpuscular Hemoglobin 33.5 % Concent Red Cell Distribution Width 14.3 % Platelet Count 143 TH/MM3 Mean Platelet Volume 8.0 FL Neutrophils (%) (Auto) 76.6 % Lymphocytes (%) (Auto) 18.5 % Monocytes (%) (Auto) 4.5 % Eosinophils (%) (Auto) 0.2 % Basophils (%) (Auto) 0.2 % Neutrophils # (Auto) 10.3 TH/MM3 Lymphocytes # (Auto) 2.5 TH/MM3 Monocytes # (Auto) 0.6 TH/MM3 Eosinophils # (Auto) 0.0 TH/MM3 Basophils # (Auto) 0.0 TH/MM3 CBC Comment DIFF FINAL Differential Comment Imaging Last Impressions Chest X-Ray 08/17/16 0400 Signed Impressions: Service Date/Time: Wednesday, August 17, 2016 03:36 - CONCLUSION: No significant change. Lungs remain clear. Barber Colon MD Assessment and Plan Problem List: (1) STEMI (ST elevation myocardial infarction) Assessment and Plan: s/p PCI/LA to Proximal RCA. Chest pain free, ambulating without difficulty. Recommendations 1. Start Lopressor 12.5mg PO BID 2. Start Lisinopril 5mg PO daily 3. Cont statin 4. Smoking cessation 5. D/C curtis 6. D/C central line 7. Transfer to [facility] 8 . 2Decho 9. Encourage ambulation 10. Cont DAPT with ASA and Brilinta (2) Tobacco dependence, continuous (3) Cardiopulmonary arrest (4) Cardiac arrest with ventricular fibrillation Problem Qualifiers (1) STEMI (ST elevation myocardial infarction): Qualified Code: I21.3 - ST elevation myocardial infarction (STEMI), unspecified artery Graeme Ewing MD August 18, 2016 10:45
[2016-08-18 10:52] LABS: BICARBONATE 26.2 MEQ/L (21.0-32.0)
--- NOTE | 2016-08-18 10:52 | MA ---
cc: SHARI PINK DATE 08/16/16 DATE OF 1955 PROCEDURE PERFORMED 1. Left heart catheterization. 2. Selective right and left coronary angiography. 3. Left ventriculogram. 4. Successful PCI/LA to proximal right coronary artery. INDICATIONS STEMI/cardiogenic shock/ VFib arrest DESCRIPTION OF PROCEDURE The patient was taken emergently to the laborer drying department in the setting of ST-segment elevation PA, in the hospital cardiac arrest. The right groin was prepped and draped in sterile fashion. Using 1% lidocaine for local anesthesia a micropuncture kit a 6-Lebanese sheath was placed in the right common femoral artery and another 5-Lebanese sheath was placed also in the right common femoral artery and a 5-Lebanese sheath was placed in the right femoral vein. Right common femoral artery angiography was performed to confirm position of the sheath. Then selective left coronary angiography was performed with a JL-5 diagnostic catheters. Angiography was taken in multiple views. This was followed by right coronary artery angiography with a JR-4 guide. This revealed 100% thrombotic occlusion of the proximal right coronary artery. We wired the vessel with a ChoICE PT extra-support wired without complication. The lesion was predilated with a 2.5x12 balloon obtaining adequate reperfusion. The patient had another episode of Vfib after reperfusion which was successfully defibrillated. had to be shocked on the table. This was followed by insertion and deployment of a 2.5x18 drug-eluting stent and the stent was postdilated with a noncompliant 3x12 and a 3.25x12 noncompliant balloons. He was started dopamine given an episode of hypotension during procedure. The patient tolerated the procedure well without complications. Estimated blood loss less than 50 cc. Total contrast used 100 cc. The 6-Lebanese right groin access site was closed with a Perclose device. The 5-Lebanese sheath on the femoral artery and the 5-Lebanese sheath and the venous were left for pressure monitoring and medications. Cangrelor IV was started after procedure. Heparin was given during the procedure for anticoagulation. RESULTS LEFT VENTRICLE The left ventricular pressure was 89/23 with an LVEDP of 20. There was no gradient upon pullback from the left ventricle to aorta. Left ventriculogram revealed a symmetric kyaw ventricle with an estimated ejection fraction of 60%. ANGIOGRAPHY: 1. Left main patent with CHARLEEN III flow, nonobstructive coronary artery disease. 2. LAD is a transapical vessel, has minimal luminal irregularities. The vessel is otherwise patent with CHARLEEN III flow. 3. The left circumflex artery has 60% lesion proximally. OM1, OM2, OM3 are patent with CHARLEEN III flow. 4. Right coronary artery is 100% occluded at its proximal segment. CONCLUSION 1. Successful PCI to proximal right coronary artery in the setting of a STEMI. 2. Elevated LVEDP. 3. Cardiogenic shock/VFib arrest. RECOMMENDATIONS The patient remains critically ill, intubated and on pressors. He will be admitted to the intensive care unit. He is going to be started on aggressive medical management for secondary prevention of coronary artery disease. He will need to be on dual antiplatelet agent with aspirin and Brilinta after Cangrelor drip is stopped, as well as high-dose statins. Given the patient's labile blood pressure MALATHI inhibitors and beta blockers are on hold at this point and further therapies to be determined. MD GRISELDA Llamas/JOANN /6:54 PM /10:39 AM ARTURO
--- NOTE | 2016-08-18 13:43 | HHI.PR ---
Subjective Remarks Patient reports he is feeling great. No chest pain or shortness of breath. Eager to go home tomorrow. He is ambulating in his room without any problems. Objective Vitals Vital Signs Date Time Temp Pulse Resp B/P Pulse Ox O2 Delivery O2 Flow Rate FiO2 08/18/16 12:40 97.5 89 16 125/89 98 08/18/16 12:00 81 08/18/16 11:07 16 08/18/16 09:44 16 08/18/16 07:57 98.5 88 16 127/88 96 08/18/16 07:57 94 08/18/16 07:15 96 Nasal Cannula 2.00 08/18/16 04:00 96.7 92 18 116/78 94 08/18/16 04:00 90 08/18/16 00:00 97.6 95 18 119/77 96 Arterial Line 08/18/16 00:00 93 08/17/16 22:00 18 08/17/16 21:05 96 Nasal Cannula 2.00 08/17/16 20:00 93 08/17/16 20:00 98.3 93 18 118/74 97 08/17/16 15:00 93 08/17/16 15:00 98.3 93 21 115/66 98 I/O 08/17/16 08/17/16 08/17/16 08/18/16 08/18/16 08/18/16 07:00 15:00 23:00 07:00 15:00 23:00 Intake Total 2155 ml 2683 ml 1876 ml Output Total 4300 ml 1230 ml 950 ml Balance -2145 ml 1453 ml 926 ml Intake Oral 0 ml 480 ml 1500 ml IV Total 1975 ml 2203 ml 376 ml Tube Irrigant 180 ml Output Urine Total 4150 ml 1230 ml 950 ml Gastric Drainage Total 150 ml # Bowel Movements 0 1 Result Diagram: 08/18/16 0940 08/18/16 0940 Imaging Last Impressions Chest X-Ray 08/17/16 0400 Signed Impressions: Service Date/Time: Wednesday, August 17, 2016 03:36 - CONCLUSION: No significant change. Lungs remain clear. Barber Colon MD Objective Remarks GENERAL: This is a well-nourished, well-developed patient, in no apparent distress. CARDIOVASCULAR: Normal rate and regular rhythm without murmurs, gallops, or rubs. RESPIRATORY: Good respiratory efforts. Breath sounds equal and clear to auscultation bilaterally. GASTROINTESTINAL: Abdomen soft, non-tender, non-distended. Normal active bowel sounds MUSCULOSKELETAL: Extremities without cyanosis, or edema. NEURO: Alert & Oriented x4 to person, place, time, situation. Moves all ext x4 PSYCH: Appropriate mood and affect. Procedures Heart catheterization A/P Assessment and Plan 60-year-old male with complicated STEMI, status post cardiac arrest. He was immediately brought to the [facility] with stenting of the RCA with reperfusion V. fib requiring shock X9. Patient was intubated and ventilated and has been under the care of the critical care service. He quickly improved and was extubated on 08/17/16. He is improving quickly and doing very well. STEMI/S/P Cardiac arrest, shock X9 - Patient is status post heart catheterization with drug-eluting stent to the proximal RCA, doing well. He is chest pain-free. - Per customs port director, on Lopressor, lisinopril, statin, Brilinta, smoking cessation advised. Patient can be transferred to [facility] today. Respiratory failure: Status post intubation secondary to above. Patient extubated on 08/17/16. - Doing well on room air Discharge Planning If remains stable and cleared by cardiology, possible discharge tomorrow or the next day. Linda Hussein MD August 18, 2016 13:43
[2016-08-18] MEDS ORDERED: TEMAZEPAM 7.5 MG CAP PO ONE (21:00)
[2016-08-19] VITALS (13 sets, daily range): BP systolic 100–115; BP diastolic 69–73; PULSE 73–93; RESP 18–20; TEMP 98.1–98.6; O2SAT 95–96
[2016-08-19] MEDS: INSULIN ASPART SUPPLEMENTAL SCALE SQ SCH ×2 (01:26→07:49)
[2016-08-19] MEDS: CHLORHEXIDINE GLUCONATE 2 % 1 PACK (2 CLOTHS) TOP SCH (04:00)
[2016-08-19] MEDS: SODIUM CHLOR 0.9% 1000 ML INJ 1,000 ML IV SCH (06:34)
[2016-08-19] MEDS: ACETAMINOPHEN/HYDROcodone 325 MG/5 MG TAB PO PRN (07:56)
--- NOTE | 2016-08-19 08:30 | PD.CARD.PN ---
Subjective Subjective Remarks Doing much better No CV complaints Chest pain free Ambulating without difficulty Objective Medications Current Medications Medications (Trade) Dose Ordered Sig/Ton Route Start Time Stop Time Status Last Admin (NS Flush) 2 ml UNSCH PRN IVF 08/16/16 16:30 (Aspirin Chew) 81 mg DAILY PO 08/17/16 09:00 08/18/16 09:45 (Brilinta) 90 mg BID PO 08/17/16 09:00 08/18/16 20:22 (Atropine Inj) 0.5 mg UNSCH PRN IV 08/16/16 18:45 (Zofran Inj) 4 mg Q4H PRN IV 08/16/16 18:45 08/19/16 02:09 Atorvastatin Calcium 80 mg 80 mg DAILY PO 08/16/16 18:45 08/18/16 09:46 (NS 1000 ml Inj) 1,000 ml @ 84 mls/hr [id number] IV 08/16/16 18:59 08/17/16 06:39 (Tylenol) 650 mg Q6H PRN PO 08/16/16 19:00 08/18/16 06:33 (Morphine Inj) 4 mg Q2H PRN IV 08/16/16 19:00 08/17/16 21:50 (Protonix Inj) 40 mg DAILY IV 08/16/16 19:00 08/18/16 09:45 (Versed Inj) 2 mg Q1H PRN IV 08/16/16 19:00 (Zofran Inj) 4 mg Q6H PRN IV 08/16/16 19:00 (Reglan Inj) 10 mg Q6H PRN IV 08/16/16 19:00 (Senna Liq) 17.6 mg Q12H PRN G-TUBE 08/16/16 19:00 Miscellaneous Information 1 [id number] XX 08/16/16 19:00 (Chlorhexidine 2% Cloth) 3 pack Taper DAILY@04 TOP 08/17/16 04:00 08/13/17 03:59 08/18/16 04:00 Chlorhexidine Gluconate 3 pack 3 pack UNSCH PRN TOP 08/16/16 19:00 Propofol 100 ml @ 0 mls/hr TITRATE IV 08/16/16 19:00 08/17/16 06:40 (fentaNYL DRIP) 250 ml @ 0 mls/hr TITRATE IV 08/16/16 19:00 (D50w (Vial) Inj) 25 ml UNSCH PRN IV PUSH 08/16/16 19:15 (Glucagon Inj) 1 mg UNSCH PRN OTHER 08/16/16 19:15 Insulin Aspart 1 1 Q6H SQ 08/16/16 19:15 08/19/16 07:49 Sodium Bicarbonate 150 meq/Sterile Water 1,000 ml @ 75 mls/hr [id number] IV 08/17/16 06:00 08/17/16 06:39 Potassium Chloride 100 ml @ 50 mls/hr Q2H PRN IV 08/17/16 05:45 08/17/16 20:35 (KCl 20 Meq Premix Inj) 100 ml @ 50 mls/hr Q2H PRN IV 08/17/16 05:45 08/17/16 18:28 Potassium Bicarb/ Potassium Chloride 50 meq 50 meq UNSCH PRN PO 08/17/16 05:45 Potassium Chloride 100 ml @ 25 mls/hr UNSCH PRN IV 08/17/16 05:45 Potassium Chloride 100 ml @ 50 mls/hr Q2H PRN IV 08/17/16 05:45 (Magnesium Sulfate Inj/NS Inj) 100 ml @ 50 mls/hr UNSCH PRN IV 08/17/16 05:45 Magnesium Oxide 800 mg 800 mg UNSCH PRN PO 08/17/16 05:45 (Magnesium Sulfate Inj/NS Inj) 100 ml @ 50 mls/hr UNSCH PRN IV 08/17/16 05:45 Potassium Phosphate 2000 mg 2,000 mg Q4H PRN PO 08/17/16 05:45 (Sodium Phosphate Inj/NS 250 ml Inj) 250 ml @ 42 mls/hr UNSCH PRN IV 08/17/16 05:45 08/17/16 06:41 (K-Phos) 2,000 mg UNSCH PRN PO/TUBE 08/17/16 05:45 (Habitrol 21 Mg Patch.24 Hr) 1 patch DAILY T-DERMAL 08/17/16 18:00 08/18/16 09:56 Miscellaneous Information 1 DAILY T-DERMAL 08/18/16 09:00 08/18/16 09:00 (Lopressor) 12.5 mg BID PO 08/18/16 09:00 08/18/16 20:22 (Prinivil) 5 mg DAILY PO 08/18/16 09:00 08/18/16 09:46 (Pill Splitter) 1 ea UNSCH PRN OTHER 08/18/16 09:00 ([place] 5-325 Mg) 1 tab Q8H PRN PO 08/18/16 09:45 08/19/16 07:56 Vital Signs / I&O Vital Signs Date Time Temp Pulse Resp B/P Pulse Ox O2 Delivery O2 Flow Rate FiO2 08/19/16 08:00 76 08/19/16 07:00 86 08/19/16 07:00 98.3 78 20 108/69 96 08/19/16 06:13 73 08/19/16 05:12 77 08/19/16 04:27 84 08/19/16 03:45 98.6 84 18 115/73 96 08/19/16 03:00 81 08/19/16 02:20 85 08/19/16 01:04 86 08/19/16 00:00 85 08/18/16 23:34 98.7 85 18 120/79 97 08/18/16 23:34 90 08/18/16 22:30 88 08/18/16 21:04 88 08/18/16 20:00 94 08/18/16 19:36 98.4 95 18 135/86 97 08/18/16 19:04 102 08/18/16 18:00 90 08/18/16 17:00 107 08/18/16 16:00 88 08/18/16 15:00 86 08/18/16 15:00 98.1 86 20 142/94 98 08/18/16 12:40 97.5 89 16 125/89 98 08/18/16 12:00 81 08/18/16 11:07 16 08/18/16 09:44 16 I/O 08/18/16 08/18/16 08/18/16 08/19/16 08/19/16 08/19/16 07:00 15:00 23:00 07:00 15:00 23:00 Intake Total 1876 ml 860 ml 240 ml 480 ml Output Total 950 ml 1120 ml 1525 ml 1400 ml Balance 926 ml -260 ml 240 ml -1045 ml -1400 ml Intake Oral 1500 ml 860 ml 240 ml 480 ml IV Total 376 ml Output Urine Total 950 ml 1120 ml 1525 ml 1400 ml Stool Total 0 ml # Voids 1 # Bowel Movements 1 1 Physical Exam GENERAL: Well-nourished, well-developed patient. intubated. SKIN: Warm and dry. HEAD: Normocephalic. EYES: No scleral icterus. No injection or drainage. NECK: Supple, trachea midline. No JVD or lymphadenopathy. CARDIOVASCULAR: Regular rate and rhythm without murmurs, gallops, or rubs. RESPIRATORY: Breath sounds equal bilaterally. No accessory muscle use. GASTROINTESTINAL: Abdomen soft, non-tender, nondistended. EXTREMITIES: No cyanosis, or edema. NEUROLOGICAL: Awake, alert, moving all extremities. Following commands Laboratory Laboratory Tests Test 08/18/16 09:40 White Blood Count 13.4 TH/MM3 Red Blood Count 4.13 MIL/MM3 Hemoglobin 13.5 GM/DL Hematocrit 40.3 % Mean Corpuscular Volume 97.8 FL Mean Corpuscular Hemoglobin 32.8 PG Mean Corpuscular Hemoglobin 33.5 % Concent Red Cell Distribution Width 14.3 % Platelet Count 143 TH/MM3 Mean Platelet Volume 8.0 FL Neutrophils (%) (Auto) 76.6 % Lymphocytes (%) (Auto) 18.5 % Monocytes (%) (Auto) 4.5 % Eosinophils (%) (Auto) 0.2 % Basophils (%) (Auto) 0.2 % Neutrophils # (Auto) 10.3 TH/MM3 Lymphocytes # (Auto) 2.5 TH/MM3 Monocytes # (Auto) 0.6 TH/MM3 Eosinophils # (Auto) 0.0 TH/MM3 Basophils # (Auto) 0.0 TH/MM3 CBC Comment DIFF FINAL Differential Comment Sodium Level 139 MEQ/L Potassium Level 4.0 MEQ/L Chloride Level 104 MEQ/L Carbon Dioxide Level 26.2 MEQ/L Anion Gap 9 MEQ/L Blood Urea Nitrogen 20 MG/DL Creatinine 0.83 MG/DL Estimat Glomerular Filtration 95 ML/MIN Rate Random Glucose 298 MG/DL Calcium Level 8.4 MG/DL Assessment and Plan Problem List: (1) STEMI (ST elevation myocardial infarction) Assessment and Plan: s/p PCI/LA to Proximal RCA. Chest pain free, ambulating without difficulty. Recommendations 1. Cont Lopressor 2. Cont Lisinopril 3. Cont statin 4 . 2Decho- Pending 5. Encourage ambulation 6. Cont DAPT with ASA and Brilinta 7. CM consult 8. F/U with me in 7 days 9. Stable from CV standpoint to be d/c today (2) Tobacco dependence, continuous (3) Cardiopulmonary arrest (4) Cardiac arrest with ventricular fibrillation Problem Qualifiers (1) STEMI (ST elevation myocardial infarction): Qualified Code: I21.3 - ST elevation myocardial infarction (STEMI), unspecified artery Graeme Ewing MD August 19, 2016 08:30
[2016-08-19] MEDS: REMOVE OLD PATCH T-DERMAL SCH (09:00)
[2016-08-19] MEDS: NICOTINE 21 MG/24 HR PATCH T-DERMAL SCH (09:20)
[2016-08-19] MEDS: ASPIRIN 81 MG CHEW TAB PO SCH (09:20)
[2016-08-19] MEDS: TICAGRELOR 90 MG TAB PO SCH (09:21)
[2016-08-19] MEDS: LISINOPRIL 5 MG TAB PO SCH (09:21)
[2016-08-19] MEDS: METOPROLOL TARTRATE 25 MG TAB PO SCH (09:21)
[2016-08-19] MEDS: PANTOPRAZOLE SODIUM 40 MG VIAL IV SCH (09:21)
[2016-08-19] MEDS: ATORVASTATIN 80 MG TAB PO SCH (09:21)
[2016-08-19] MEDS ORDERED: HYDR-3516 PO (09:25)
[2016-08-19] MEDS ORDERED: BRIL90TA PO (09:25)
[2016-08-19] MEDS ORDERED: ATOR1TAB18 PO (09:25)
[2016-08-19] MEDS ORDERED: METO25TA3 PO (09:25)
[2016-08-19] MEDS ORDERED: LISI-519 PO (09:25)
[2016-08-19] MEDS ORDERED: Aspirin Chew PO (09:25)
[2016-08-19] MEDS ORDERED: METF500T PO (10:04)
[2016-08-19] MEDS: SODIUM BICARBONATE 8.4% INJ 150 MEQ in WATER STERILE FOR INJ 850 ML IV SCH (10:45)
--- NOTE | 2016-08-19 10:47 | HHI.DS ---
Discharge Summary Admission Date Aug 16, 2016 at 17:18 Discharge Date: August 19, 2016 Admitting Diagnosis STEMI, VFib Arrest, Cardiopulmonary Arrest, Hyperglycemia (1) STEMI (ST elevation myocardial infarction) ICD Code: I21.3 (2) Cardiopulmonary arrest ICD Code: I46.9 (3) Cardiac arrest with ventricular fibrillation ICD Code: I46.9 (4) Diabetes mellitus ICD Code: E11.9 (5) Tobacco dependence, continuous ICD Code: 305.1 (6) Respiratory failure ICD Code: J96.90 (7) Right coronary artery occlusion ICD Code: I21.11 Procedures Heart catheterization - successful PCI to proximal right coronary artery in the setting of a STEMI Brief History - From Admission 60 y/o man presented with chest pain, arrested in ED -> lab nurse where rescue stent RCA with reperfusion v-fib requiring shock X 9 total. Intubated, ventilated. Escorted to CVICU on vent. Cangrelor finished and Brilinta given down NG tube after 6 minutes from ceasing cangrelor. Patient with NSR at 108, moves 4 limbs with purpose. VERY tolerant to sedation - probable ETOH Hx. Loaded with ativan and scheduled. Will start precedex in a.m. for vent weaning and withdrawal prophylaxis (once we are sure he is not having any more bradycardia problems). CBC/BMP: 08/18/16 0940 08/18/16 0940 Significant Findings Laboratory Tests Test 08/16/16 08/16/16 08/16/16 08/17/16 16:20 18:35 22:45 04:32 Hemoglobin 17.1 GM/DL (13.0-17.0) Bedside Hemoglobin 17.3 G/DL (12.0-17.0) Monocytes (%) (Auto) 8.8 % (0.0-8.0) Bedside Sodium 135 MMOL/L (138-146) Bedside Glucose 471 MG/DL (60-95) Troponin I 0.12 NG/ML GREATER THAN (0.02-0.05) 40.00 NG/ML (0.02-0.05) Blood Gas HCO3 18 mmol/L 18 mmol/L (22-26) (22-26) Blood Gas Base Excess -8.0 mmol/L -7.0 mmol/L (-2-2) (-2-2) Arterial Blood pH 7.25 7.32 (7.380-7.420) (7.380-7.420) Arterial Blood Partial 43 mmHg (38-42) 36 mmHg (38-42) Pressure CO2 Arterial Blood Partial 384 mmHg 124 mmHg Pressure O2 (61-120) (61-120) Arterial Blood Oxygen Content 21.8 Vol % 20.7 Vol % (12.0-20.0) (12.0-20.0) Total Creatine Kinase 739 U/L (39-308) Creatine Kinase MB 125.1 NG/ML (0.5-3.6) Creatine Kinase MB % 16.9 % (0.0-4.0) Test 08/17/16 08/18/16 04:35 09:40 White Blood Count 12.6 TH/MM3 13.4 TH/MM3 (4.0-11.0) (4.0-11.0) Neutrophils (%) (Auto) 91.6 % 76.6 % (16.0-70.0) (16.0-70.0) Lymphocytes (%) (Auto) 5.6 % (9.0-44.0) Neutrophils # (Auto) 11.5 TH/MM3 10.3 TH/MM3 (1.8-7.7) (1.8-7.7) Lymphocytes # (Auto) 0.7 TH/MM3 (1.0-4.8) Chloride Level 112 MEQ/L (98-107) Carbon Dioxide Level 20.5 MEQ/L (21.0-32.0) Random Glucose 299 MG/DL 298 MG/DL (74-106) (74-106) Calcium Level 7.8 MG/DL 8.4 MG/DL (8.5-10.1) (8.5-10.1) Phosphorus Level 1.8 MG/DL (2.5-4.9) Magnesium Level 2.7 MG/DL (1.5-2.5) Aspartate Amino Transf 411 U/L (15-37) (AST/SGOT) Alanine Aminotransferase 258 U/L (12-78) (ALT/SGPT) Troponin I GREATER THAN 40.00 NG/ML (0.02-0.05) Total Protein 6.3 GM/DL (6.4-8.2) Triglycerides Level 373 MG/DL (42-150) Cholesterol Level 212 MG/DL (120-200) LDL Cholesterol 110 MG/DL (0-99) HDL Cholesterol 27.9 MG/DL (40.0-60.0) Red Blood Count 4.13 MIL/MM3 (4.50-5.90) Platelet Count 143 TH/MM3 (150-450) Blood Urea Nitrogen 20 MG/DL (7-18) Imaging Last Impressions Chest X-Ray 08/17/16 0400 Signed Impressions: Service Date/Time: Wednesday, August 17, 2016 03:36 - CONCLUSION: No significant change. Lungs remain clear. Barber Colon MD PE at Discharge GENERAL: This is a well-nourished, well-developed patient, in no apparent distress. CARDIOVASCULAR: Normal rate and regular rhythm without murmurs, gallops, or rubs. RESPIRATORY: Good respiratory efforts. Breath sounds equal and clear to auscultation bilaterally. GASTROINTESTINAL: Abdomen soft, non-tender, non-distended. Normal active bowel sounds MUSCULOSKELETAL: Extremities without cyanosis, or edema. NEURO: Alert & Oriented x4 to person, place, time, situation. Moves all ext x4 PSYCH: Appropriate mood and affect. Pt update on day of discharge Patient reports feeling well. No acute medical complaints. Denies any f/c, n/v , chest pain, shortness of breath or abdominal pain. Discussed with patient persistent elevation in blood sugars and new diabetes diagnosis. A1c ordered. Will begin Metformin 500mg BID. Discussed importance of lifestyle modification and tight blood sugar management especially given his cardiac disease. Case management consulted to assist with medications at time of discharge and scheduling follow up in the community clinic with Dr. Moran. Hospital Course 60 yo male with PMHX of HTN, active smoker and obesity who presented to the ED with chest pain and EKG showed atrial fibrillation with RVT and ST elevation in the inferior leads suggestive of myocardial injury. STEMI team was activated. Patient coded in the ED and in route to the lab nurse. Patient had approximately 10 episodes of ventricular fibrillation which were successfully shocked, CPR given. Patient was intubated. He regained spontaneous circulation. Patient seen in consultation by Dr. Ashby of cardiology and underwent emergent percutaneous coronary intervention. Patient followed by critical care team. 08/16/16 patient underwent left heart catheterization in the setting of ST segment elevation NH revealing 100% occlusion of the proximal segment of the right coronary artery and subsequent PCI/LA. 08/17 tolerated CPAP trial and was extubated. Patient continued to be followed by cardiology and was started on Lopressor and Lisinopril and continued on statin. He was continued on DAPT with ASA and Brilinta. Patient was advised on smoking cessation. Patient improved clinically. 2Decho was completed - report pending at time of discharge. Patient was cleared for discharge from cardiac standpoint. Patient with elevated blood sugars and newly diagnosed diabetes this admission. A1c ordered and started on Metformin. Patient advised on lifestyle modification and importance of strict blood glucose management. Case management consulted to assist with discharge medications and post discharge followup with Dr. Moran in the community clinic. Patient seen and examined on day of discharge and medically stable to be discharge to home. Pt Condition on Discharge: Stable Discharge Disposition: Discharge Home Discharge Time: > 30 minutes Discharge Instructions DIET: Follow Instructions for: Heart Healthy Diet, Diabetic Diet Activities you can perform: Regular-No Restrictions Follow up Referrals: Cardiology - 1 Week with MD Kaylin PCP Follow-up - 08/26/[address] Moran New Medications: Metformin (Metformin) 500 Mg Tab 500 MG PO BIDPC With meals Blood Sugar Management #60 Ref 0 TAB Atorvastatin (Atorvastatin) 80 Mg Tab 80 MG PO DAILY #30 TAB Hydrocodone-Acetaminophen (Hydrocodone-Acetaminophen) 5-325 mg Tab 1 TAB PO Q8H PRN PAIN GREATER THAN 5 #15 TAB Lisinopril (Lisinopril) 5 Mg Tab 5 MG PO DAILY #30 TAB Metoprolol Tartrate (Metoprolol Tartrate) 25 Mg Tab 12.5 MG PO BID #60 TAB Ticagrelor (Brilinta) 90 Mg Tab 90 MG PO BID #60 TAB ([Aspirin Chew]) 81 MG CHEW 81 MG PO DAILY #30 TAB.CHEW Additional Information Written by Priyanka Frazier PA-C acting as scribe for Dr. Hussein on 08/19/16 at 11:08. This note was transcribed by scribe [Priyanka Frazier PA-C]. I, Dr. Linda Hussein personally performed the history, physical exam, and medical decision making; and confirmed the accuracy of the information in the transcribed note. Authenticated by Dr. Linda Hussein on 08/19/16 at 1110. Priyanka Frazier August 19, 2016 10:47 Linda Hussein MD August 19, 2016 16:51
--- NOTE | 2016-08-19 11:12 | HHI.DCPOC ---
Discharge Care Plan Diagnosis: (1) Tobacco dependence, continuous (2) Cardiopulmonary arrest (3) Diabetes mellitus (4) Respiratory failure (5) STEMI (ST elevation myocardial infarction) (6) Right coronary artery occlusion (7) Cardiac arrest with ventricular fibrillation Goals to Promote Your Health * To prevent worsening of your condition and complications * To maintain your health at the optimal level Directions to Meet Your Goals Take your medications as prescribed Follow your dietary instruction Follow activity as directed Please quit smoking Keep your appointments as scheduled with Dr. Moran in the community clinic and Dr. Ashby of cardiology Take your immunizations and boosters as scheduled If your symptoms worsen call your PCP, if no PCP go to Urgent Care Center or Emergency Room Smoking is Dangerous to Your Health. Avoid second hand smoke Call the 24-hour hour crisis hotline for domestic abuse at Priyanka Frazier August 19, 2016 11:12 Linda Hussein MD August 19, 2016 16:50
--- NOTE | 2016-08-20 10:08 | EC ---
Study Study Date:08/19/2016 STUDY CONCLUSIONS SUMMARY - Procedure narrative: Image quality was fair. The study was technically limited due to poor acoustic window availability. - Left ventricle: Systolic function was probably normal. In limited views, the estimated ejection fraction was in the range of 55% to 60%. The study is not technically sufficient to allow evaluation of LV diastolic function. If LV function is below 40, please consider prescribing an ACEI or ARB or document rationale for non-use. PROCEDURE DATA STUDY STATUS: Elective. Procedure: Transthoracic echocardiography. Image quality was fair. The study was technically limited due to poor acoustic window availability. Scanning was performed from the parasternal, apical, and subcostal acoustic windows. Study completion: The patient tolerated the procedure well. Transthoracic echocardiography. M-mode, complete 2D, complete spectral Doppler, and color Doppler. Height: Height: 78in. Weight: Weight: 245.5lb. Body mass index: BMI: 28.4kg/m^2. Body surface area: BSA: 2.47m^2. Patient status: Inpatient. CARDIAC ANATOMY LEFT VENTRICLE: Systolic function was probably normal. In limited views, the estimated ejection fraction was in the range of 55% to 60%. Images were inadequate for LV wall motion assessment. The study is not technically sufficient to allow evaluation of LV diastolic function. AORTIC VALVE: [place]. Doppler: There was no stenosis. No significant regurgitation. Valve area: 2.56cm^2(VTI). Indexed valve area: 1.04cm^2/m^2 (VTI). Valve area: 2.34cm^2 (Vmax). Indexed valve area: 0.95cm^2/m^2 (Vmax). Mean gradient: 3mm Hg (S). MITRAL VALVE: The valve appears to be grossly normal. Doppler: There was no evidence for stenosis. Trace to mild regurgitation. Peak gradient: 3mm Hg (D). LEFT ATRIUM: The atrium was mildly dilated. PULMONIC VALVE: Not visualized. TRICUSPID VALVE: The valve appears to be grossly normal. Doppler: There was no evidence for stenosis. Trace regurgitation. PERICARDIUM: There was no pericardial effusion. Patient weight: 245.5lb _Ejection fraction:_ 65-75% _Fractional shortening:_ 32% up to 5Kg 5-11.5Kg 11.6-22.9Kg 23-45Kg 45-57Kg Aortic Root 7-13 <17 13-22 17-27 17-27 LA diam 6-13 <23 24-38 33-47 37-40 RVID 10-17 7-15 7-15 7-18 8-17 LVIDd 12-22 <32 24-38 33-47 37-40 LVPW 2-4 3-6 5-7 6-8 7-8 IVS 2-4 3-6 5-7 6-8 7-8 BASIC MEASUREMENTS ADULT NORMAL Left ventricle LV internal dimension, ED, chordal *56.9 mm 43-52 level, PLAX LV internal dimension, ES, chordal *43.3 mm 23-38 level, PLAX Fractional shortening, chordal level, *24 % >29 PLAX LV posterior wall thickness, ED 8.69 mm IVS/LVPW ratio, ED 1 <1.3 Ventricular septum Septal thickness, ED 8.69 mm Aortic valve Leaflet separation 22 mm 15-26 Aorta Root diameter, ED 44 mm Left atrium Anterior-posterior dimension 43 mm Anterior-posterior dimension index 1.74 cm/m^2 <2.2 BASIC MEASUREMENTS ADULT NORMAL Aortic valve Leaflet separation 22 mm 15-26 DOPPLER MEASUREMENTS ADULT NORMAL Aortic valve Peak velocity, S 121 cm/s Mean velocity, S 84.9 cm/s VTI, S 21.2 cm Mean gradient, S 3 mm Hg Valve area, VTI 2.56 cm^2 Valve area index, VTI 1.04 cm^2/m^2 Valve area, Vmax 2.34 cm^2 Valve area index, Vmax 0.95 cm^2/m^2 Mitral valve Peak E-wave velocity 81.9 cm/s Peak A-wave velocity 53.3 cm/s Deceleration time *246 ms 150-230 Peak gradient, D 3 mm Hg Peak E/A ratio 1.5 Pulmonic valve Peak velocity, S 54.1 cm/s LEGEND: Mean values are shown as u=mean value. Asterisk (*) cullen values outside specified normal range. Prepared and signed by Miguel Merino [id number]
== END 2016-08-19 12:06 | disposition home or self-care (01) | DRG 246 ==
LOC: NEPC 16:15 → NEDA 17:18 → HCVR 19:16 → HCIN 08-18 15:03
PROVIDERS: ADMIT Family Medicine; ATTEND Family Medicine
PROC: 027034Z Dilation of Coronary Artery, One Artery with Drug-eluting Intraluminal Device, Percutaneous Approach (ICD-10-PCS; principal; 2016-08-16)
PROC: 5A12012 Performance of Cardiac Output, Single, Manual (ICD-10-PCS; 2016-08-16)
PROC: 5A1935Z Respiratory Ventilation, Less than 24 Consecutive Hours (ICD-10-PCS; 2016-08-16)
PROC: 4A023N7 Measurement of Cardiac Sampling and Pressure, Left Heart, Percutaneous Approach (ICD-10-PCS; 2016-08-16)
PROC: B2111ZZ Fluoroscopy of Multiple Coronary Arteries using Low Osmolar Contrast (ICD-10-PCS; 2016-08-16)
PROC: B2151ZZ Fluoroscopy of Left Heart using Low Osmolar Contrast (ICD-10-PCS; 2016-08-16)
PROC: B41F1ZZ Fluoroscopy of Right Lower Extremity Arteries using Low Osmolar Contrast (ICD-10-PCS; 2016-08-16)
PROC: 5A2204Z Restoration of Cardiac Rhythm, Single (ICD-10-PCS; 2016-08-16)
PROC: 0BH17EZ Insertion of Endotracheal Airway into Trachea, Via Natural or Artificial Opening (ICD-10-PCS; 2016-08-16)
PROC: 02HV33Z Insertion of Infusion Device into Superior Vena Cava, Percutaneous Approach (ICD-10-PCS; 2016-08-16)
DX: I21.19 ST elevation (STEMI) myocardial infarction involving other coronary artery of inferior wall (principal); I49.01 Ventricular fibrillation; J96.90 Respiratory failure, unspecified, unspecified whether with hypoxia or hypercapnia; R57.0 Cardiogenic shock; E11.65 Type 2 diabetes mellitus with hyperglycemia; E78.00 Pure hypercholesterolemia, unspecified; I48.91 Unspecified atrial fibrillation; I25.10 Atherosclerotic heart disease of native coronary artery without angina pectoris; I10 Essential (primary) hypertension; E66.9 Obesity, unspecified; F17.210 Nicotine dependence, cigarettes, uncomplicated; Z68.28 Body mass index [BMI] 28.0-28.9, adult; Z78.1 Physical restraint status; Z88.5 Allergy status to narcotic agent; Z91.041 Radiographic dye allergy status
CPT/HCPCS: 31500; 36556; 71010; 80048; 80053; 80061; 82310; 82435; 82550; 82552; 82565; 82805; 82947; 82948; 83605; 83735; 83880; 84100; 84132; 84295; 84484; 84520; 85002; 85014; 85025; 85610; 85730; 87641; 92941; 93005; 93306; 93458; 94002; 94003; 94150; 94640; 94664; 96374; 96375; 96376; C1725; C1760; C1769; C1876; C1887; C1893; C9113; C9460; G0269; J0171; J0282; J0330; J1200; J1265; J1644; J1815; J2060; J2250; J2270; J2370; J2405; J2930; J3010; J3370; J3475; J3480; J7030; J7050; Q9967

== ENCOUNTER 2017-08-28 18:46 | Emergency (ER) | payer OTHER ==
[~2017-08-28] VITALS: Ht 195.6 cm; Wt 80.0 kg
[~2017-08-28 18:46] MED LIST changes: -AMIODARONE HCL 150 MG/3 ML VIAL IV ONE; +ATOR80TA45 PO; +Aspirin Chew PO; +BRIL90TA PO; -DICL-86 PO; -EPINEPHrine HCL (1:10,000) 1 MG/10 ML SYRINGE IV ONE; +HYDR-3516 PO; +LISI-519 PO; -MAGNESIUM SULFATE 40 MEQ/10 ML VIAL IV ONE; +METF500T PO; -METH500T3 PO; +METO25TA3 PO; -TAB-TAB PO; -ZOCO40TA PO
[2017-08-28 19:03] VITALS: BP 108/57; PULSE 92; RESP 18; TEMP 98.5; O2SAT 96
[2017-08-28] MEDS ORDERED: SODIUM CHLORIDE 0.9% FLUSH 10 ML FLUSH IVF PRN (19:45)
--- NOTE | 2017-08-28 19:50 | PD ---
HPI Chief Complaint: Medical Clearance Time Seen by Provider: 19:28 Travel History International Travel<30 days: No Contact w/Intl Traveler<30days: No Traveled to known affect area: No History of Present Illness HPI 61-year-old male with history of coronary artery disease, diabetes, tobacco abuse, hyperlipidemia, presents with his daughter for evaluation of episodic confusion and word finding. Reportedly the patient was at home at approximately 4:45 PM today and he was complaining of some paresthesias in her right hand, appeared to be staring into space, was forgetful of the name of his place of work, his grandchildren's names, he had trouble finding the name for mayonnaise and he was not able to identify the team name of the hat that he was wearing. This was all very bizarre according to the daughter. He has never acted this way before. The whole episode lasted for approximately 3-5 minutes and then resolved. She is concerned that it could have been a TIA. He has been complaining of a headache over the past 2 days as well which he relates to stress. He reports that his son last week and he has been grieving throughout the week, has had little sleep. His primary care physician prescribed him Xanax 0.5 mg PRN, which he used today at noon and then again at 4 PM. He has no other focal symptoms. He had no slurred speech, focal weakness , chest pain, shortness of breath, blurred vision, ataxia, dysarthria. No other complaints at this time. PFSH Past Medical History Hx Anticoagulant Therapy: Yes (BRINLINTA ) Cancer: No Cardiac Catheterization: Yes Cardiovascular Problems: Yes High Cholesterol: Yes Diabetes: Yes Patient Takes Glucophage: Yes Diminished Hearing: No Diverticulitis: Yes Endocrine: Yes Gastrointestinal Disorders: Yes (DIVERTICULITIS) Genitourinary: No Heparin Induced Thrombocytopen: No Immune Disorder: No Implanted Vascular Access Dvce: No Musculoskeletal: No Neurologic: No Psychiatric: No Reproductive: No Respiratory: No Immunizations Current: Yes Sickle Cell Disease: No Past Surgical History Abdominal Surgery: Yes (removal of sigmoid colon due to diverticulitis) Coronary Stent: Yes Other Surgery: Yes Social History Alcohol Use: Yes (DENIES) Tobacco Use: Yes (1/2 ppd) Substance Use: No Allergies-Medications (Allergen,Severity, Reaction): Coded Allergies: acetaminophen (Unverified Allergy, Intermediate, ITCHING, 12/02/16) codeine (Unverified Allergy, Intermediate, ITHCHING, 12/02/16) oxycodone (Unverified Allergy, Intermediate, ITCHING, 12/02/16) hydromorphone (Unverified Adverse Reaction, Severe, HALLUCINATIONS, ) diatrizoate meglumine (Unverified Adverse Reaction, Intermediate, RASH, SKIN PEELING, 12/02/16) gadobenic acid (Unverified Adverse Reaction, Intermediate, RASH, SKIN PEELING, 12/02/16) gadodiamide (Unverified Adverse Reaction, Intermediate, RASH, SKIN PEELING , 12/02/16) gadoteridol (Unverified Adverse Reaction, Intermediate, RASH, SKIN PEELING , 12/02/16) iodixanol (Unverified Adverse Reaction, Intermediate, RASH, SKIN PEELING, 12/02/16) iohexol (Unverified Adverse Reaction, Intermediate, RASH, SKIN PEELING, ) Reported Meds & Prescriptions Reported Meds & Active Scripts Active Metformin (Metformin HCl) 500 Mg Tab 500 Mg PO BIDPC With meals Brilinta (Ticagrelor) 90 Mg Tab 90 Mg PO BID Metoprolol Tartrate 25 Mg Tab 12.5 Mg PO BID Lisinopril 5 Mg Tab 5 Mg PO DAILY Hydrocodone-Acetaminophen 5-325 mg Tab 1 Tab PO Q8H PRN Atorvastatin (Atorvastatin Calcium) 80 Mg Tab 80 Mg PO DAILY [Aspirin Chew] 81 MG Chew 81 Mg PO DAILY Review of Systems Except as stated in HPI: all other systems reviewed are Neg Physical Exam Narrative GENERAL: Pleasant well-developed well-nourished male who is observed to be ambulatory in the ED with no gait disturbance. SKIN: Warm and dry. HEAD: Atraumatic. Normocephalic. EYES: Pupils equal and round. No scleral icterus. No injection or drainage. ENT: No nasal bleeding or discharge. Mucous membranes pink and moist. NECK: Trachea midline. No JVD. CARDIOVASCULAR: Regular rate and rhythm. No murmur appreciated. RESPIRATORY: No accessory muscle use. Clear to auscultation. Breath sounds equal bilaterally. GASTROINTESTINAL: Abdomen soft, non-tender, nondistended. Hepatic and splenic margins not palpable. MUSCULOSKELETAL: No obvious deformities. No clubbing. No cyanosis. No edema. NEUROLOGICAL: Awake and alert. No obvious cranial nerve deficits. Motor grossly within normal limits. Normal speech. Normal finger to nose, normal heel to wyatt, normal rapid alternating movements. Data Data Last Documented VS Vital Signs Date Time Temp Pulse Resp B/P (MAP) Pulse Ox O2 Delivery O2 Flow Rate FiO2 08/28/17 19:03 98.5 92 18 108/57 (74) 96 Orders Orders Electrocardiogram (08/28/17 19:44) Prothrombin Time / Inr (Pt) (08/28/17 19:44) Act Partial Throm Time (Ptt) (08/28/17 19:44) Complete Blood Count With Diff (08/28/17 19:44) Basic Metabolic Panel (Bmp) (08/28/17 19:44) Creatine Kinase (Cpk) (08/28/17 19:44) Troponin I (08/28/17 19:44) Ct Brain W/O Iv Contrast(Rout) (08/28/17 19:44) Chest, Single Ap (08/28/17 19:44) Ecg Monitoring (08/28/17 19:44) Iv Access Insert/Monitor (08/28/17 19:44) Oximetry (08/28/17 19:44) Blood Glucose (08/28/17 19:44) Sodium Chloride 0.9% Flush (Ns Flush) (08/28/17 19:45) Ed Discharge Order (08/28/17 21:17) Labs Laboratory Tests Test 08/28/17 20:15 White Blood Count 10.5 TH/MM3 Red Blood Count 4.27 MIL/MM3 Hemoglobin 13.9 GM/DL Hematocrit 40.1 % Mean Corpuscular Volume 93.9 FL Mean Corpuscular Hemoglobin 32.5 PG Mean Corpuscular Hemoglobin Concent 34.6 % Red Cell Distribution Width 14.7 % Platelet Count 206 TH/MM3 Mean Platelet Volume 7.6 FL Neutrophils (%) (Auto) 59.4 % Lymphocytes (%) (Auto) 32.3 % Monocytes (%) (Auto) 6.1 % Eosinophils (%) (Auto) 1.5 % Basophils (%) (Auto) 0.7 % Neutrophils # (Auto) 6.2 TH/MM3 Lymphocytes # (Auto) 3.4 TH/MM3 Monocytes # (Auto) 0.6 TH/MM3 Eosinophils # (Auto) 0.2 TH/MM3 Basophils # (Auto) 0.1 TH/MM3 CBC Comment DIFF FINAL Differential Comment Prothrombin Time 11.3 SEC Prothromb Time International Ratio 1.1 RATIO Activated Partial Thromboplast Time 26.8 SEC Blood Urea Nitrogen 19 MG/DL Creatinine 0.90 MG/DL Random Glucose 145 MG/DL Calcium Level 9.1 MG/DL Sodium Level 136 MEQ/L Potassium Level 3.6 MEQ/L Chloride Level 105 MEQ/L Carbon Dioxide Level 22.2 MEQ/L Anion Gap 9 MEQ/L Estimat Glomerular Filtration Rate 86 ML/MIN Total Creatine Kinase 154 U/L Troponin I LESS THAN 0.02 NG/ML MDM Medical Decision Making Medical Screen Exam Complete: Yes Emergency Medical Condition: Yes Medical Record Reviewed: Yes Differential Diagnosis TIA, anxiety, benzodiazepine side effect, CVA, hypoglycemia, intracranial hemorrhage, electrolyte abnormality Narrative Course The patient was placed on ECG monitoring pulse oximetry. A 12-lead EKG was obtained. Plan is for lab work, chest x-ray, CT of the brain. Lab work and imaging studies are reassuring. There are no acute abnormalities. Most likely the patient's symptoms were secondary to grieving, lack of sleep, benzodiazepine side effect as he had never taken a benzodiazepine in the past. Certainly TIA is on the differential. The patient was offered observational admission however he is declining at this time, he has a lot of family issues to take care of in regards to his son's . He understands to return at any time as necessary. He is encouraged to follow-up closely with his primary care physician. Diagnosis Primary Impression: Grief reaction Additional Impression: Medication side effect Additional Instructions: Follow-up closely with your primary care physician. Return for any acutely new or worsening symptoms. Med/Other Pt SpecificInfo: No Change to Meds Disposition: 01 DISCHARGE HOME Condition: Stable Barry Watkins August 28, 2017 19:50
--- NOTE | 2017-08-28 20:30 | RADRPT ---
EXAM DATE/TIME: 08/28/2017 19:58 [facility] COMPARISON: CHEST SINGLE AP, August 17, 2016, 3:36. INDICATIONS : Shortness of breath. MEDICAL HISTORY : Hypertension. Myocardial infarction. SURGICAL HISTORY : Stents. ENCOUNTER: Initial ACUITY: 1 day PAIN SCORE: 0/10 LOCATION: chest FINDINGS: A single view of the chest demonstrates the lungs to be symmetrically aerated without evidence of mas s, infiltrate or effusion. The cardiomediastinal contours are unremarkable. Osseous structures are intact. CONCLUSION: No acute disease. Hany Hilton Jr., MD on August 28, 2017 at 20:28 Board Certified Radiologist. This report was verified electronically.
[2017-08-28 20:39] LABS: AUTOMATED NEUTROPHIL # 6.2 TH/MM3 (1.8-7.7); BASOPHIL # 0.1 TH/MM3 (0-0.2); BASOPHIL % 0.7 % (0.0-2.0); EOSINOPHIL # 0.2 TH/MM3 (0-0.4); EOSINOPHIL % 1.5 % (0.0-4.0); HEMATOCRIT 40.1 % (39.0-51.0); HEMOGLOBIN 13.9 GM/DL (13.0-17.0); LYMPH % 32.3 % (9.0-44.0); LYMPHOCYTE # 3.4 TH/MM3 (1.0-4.8); MEAN CELL VOLUME 93.9 FL (80.0-100.0); MEAN CORPUSCULAR HEMOGLOBIN 32.5 PG (27.0-34.0); MEAN CORPUSCULAR HGB CONC 34.6 % (32.0-36.0); MEAN PLATELET VOLUME 7.6 FL (7.0-11.0); MONO % 6.1 % (0.0-8.0); MONOCYTE # 0.6 TH/MM3 (0-0.9); NEUT % 59.4 % (16.0-70.0); PLATELET COUNT 206 TH/MM3 (150-450); RED BLOOD COUNT 4.27 MIL/MM3 (4.50-5.90); RED CELL DISTRIBUTION WIDTH 14.7 % (11.6-17.2); WHITE BLOOD COUNT 10.5 TH/MM3 (4.0-11.0)
[2017-08-28 20:46] LABS: INTERNATIONAL NORMALIZED RATIO 1.1 RATIO; PROTHROMBIN TIME - PATIENT 11.3 SEC (9.8-11.6)
--- NOTE | 2017-08-28 20:54 | RADRPT ---
EXAM DATE/TIME: 08/28/2017 20:35 [facility] COMPARISON: No previous studies available for comparison. INDICATIONS : Confusion RADIATION DOSE: 47.93 CTDIvol (mGy) MEDICAL HISTORY : Cardiovascular disease. Diabetes mellitus type 1. SURGICAL HISTORY : None. ENCOUNTER: Initial ACUITY: 1 day PAIN SCALE: 0/10 LOCATION: cranial TECHNIQUE: Multiple contiguous axial images were obtained of the head. Using automated exposure control and adj ustment of the mA and/or kV according to patient size, radiation dose was kept as low as reasonably a chievable to obtain optimal diagnostic quality images. DICOM format image data is available electro nically for review and comparison. FINDINGS: CEREBRUM: The ventricles are normal for age. No evidence of midline shift, mass lesion, hemorrhage or acute in farction. No extra-axial fluid collections are seen. POSTERIOR FOSSA: The cerebellum and brainstem are intact. The 4th ventricle is midline. The cerebellopontine angle i s unremarkable. EXTRACRANIAL: The visualized portion of the orbits is intact. SKULL: The calvaria is intact. No evidence of skull fracture. CONCLUSION: Normal examination. Hany Hilton Jr., MD on August 28, 2017 at 20:51 Board Certified Radiologist. This report was verified electronically.
[2017-08-28 20:55] LABS: BICARBONATE 22.2 MEQ/L (21.0-32.0); BLOOD UREA NITROGEN 19 MG/DL (7-18); CALCIUM 9.1 MG/DL (8.5-10.1); CHLORIDE 105 MEQ/L (98-107); GLOMERULAR FILTRATION RATE 86 ML/MIN (>89); GLUCOSE,RANDOM 145 MG/DL (74-106); SODIUM (NA) 136 MEQ/L (136-145)
[2017-08-28 21:01] LABS: TROPONIN I LESS THAN 0.02 NG/ML (0.02-0.05)
--- NOTE | 2017-08-28 21:20 | PD ---
Physical Exam Date Seen by Provider: August 28, 2017 Time Seen by Provider: 20:00 Narrative I, Dr. Harden, have reviewed the advance practice practitioner's documentation and am in agreement, met with the patient face to face, made the diagnosis, and the medical decision making was done by me. *My assessment and Findings: Patient seen and evaluated with PA, please see PA notes for further details. Patient had apparent altered mental status episode after he had taken Xanax, is dealing with a lot of emotions after losing his son last week, and it was the first time he had taken Xanax. Patient is currently awake, alert, oriented 3, has no focal neurological deficits, denies any homicidal or suicidal ideation. EKG and lab work was fairly unremarkable. At this point, it sounds like she is having a grief reaction and this may have been a side effect of Xanax. I do not see any focal neurological deficits. CAT scan was unremarkable. Considering his history, I have discussed findings with him and have offered to admit the patient as an observation versus releasing him and having him follow-up closely with her primary care physician as an outpatient for further evaluation, the patient states that he has much to take care of at home right now and would prefer to deal with this as an outpatient. He should return for any further issues as needed. The plan has been discussed with him he states understanding. Data Data Last Documented VS Vital Signs Date Time Temp Pulse Resp B/P (MAP) Pulse Ox O2 Delivery O2 Flow Rate FiO2 08/28/17 19:03 98.5 92 18 108/57 (74) 96 Orders Orders Electrocardiogram (08/28/17:44) Prothrombin Time / Inr (Pt) (08/28/17:) Act Partial Throm Time (Ptt) (08/28/17:44) Complete Blood Count With Diff (08/28/17:) Basic Metabolic Panel (Bmp) (08/28/17:) Creatine Kinase (Cpk) (08/28/17) Troponin I (08/28/17:) Ct Brain W/O Iv Contrast(Rout) (08/28/17:) Chest, Single Ap (08/28/17:) Ecg Monitoring (08/28/17) Iv Access Insert/Monitor (5/11/18 19:44) Oximetry (08/28/17 19:44) Blood Glucose (08/28/17 19:44) Sodium Chloride 0.9% Flush (Ns Flush) (08/28/17 19:45) Ed Discharge Order (08/28/17 21:17) Labs Laboratory Tests Test 08/28/17 20:15 White Blood Count 10.5 TH/MM3 Red Blood Count 4.27 MIL/MM3 Hemoglobin 13.9 GM/DL Hematocrit 40.1 % Mean Corpuscular Volume 93.9 FL Mean Corpuscular Hemoglobin 32.5 PG Mean Corpuscular Hemoglobin Concent 34.6 % Red Cell Distribution Width 14.7 % Platelet Count 206 TH/MM3 Mean Platelet Volume 7.6 FL Neutrophils (%) (Auto) 59.4 % Lymphocytes (%) (Auto) 32.3 % Monocytes (%) (Auto) 6.1 % Eosinophils (%) (Auto) 1.5 % Basophils (%) (Auto) 0.7 % Neutrophils # (Auto) 6.2 TH/MM3 Lymphocytes # (Auto) 3.4 TH/MM3 Monocytes # (Auto) 0.6 TH/MM3 Eosinophils # (Auto) 0.2 TH/MM3 Basophils # (Auto) 0.1 TH/MM3 CBC Comment DIFF FINAL Differential Comment Prothrombin Time 11.3 SEC Prothromb Time International Ratio 1.1 RATIO Activated Partial Thromboplast Time 26.8 SEC Blood Urea Nitrogen 19 MG/DL Creatinine 0.90 MG/DL Random Glucose 145 MG/DL Calcium Level 9.1 MG/DL Sodium Level 136 MEQ/L Potassium Level 3.6 MEQ/L Chloride Level 105 MEQ/L Carbon Dioxide Level 22.2 MEQ/L Anion Gap 9 MEQ/L Estimat Glomerular Filtration Rate 86 ML/MIN Total Creatine Kinase 154 U/L Troponin I LESS THAN 0.02 NG/ML [facility] Medical Record Reviewed: Yes Supervised Visit with BETY: Yes Diagnosis Primary Impression: Grief reaction Additional Impression: Medication side effect Disposition: 01 DISCHARGE HOME Condition: Stable Opal Harden MD August 28, 2017 21:20
--- NOTE | 2017-08-29 18:26 | EKG ---
Date Performed: 08/28/2017 Time Performed: 20:19:15 PTAGE: 61 years EKG: Sinus rhythm POSSIBLE RIGHT VENTRICULAR CONDUCTION DELAY BORDERLINE ECG PREVIOUS TRACING : 08/17/2016 06.57 Since the previous tracing, no significant change noted DOCTOR: Melody Ruvalcaba Interpretating Date/Time 08/29/2017 18:24:25
== END 2017-08-28 21:47 | disposition home or self-care (01) ==
LOC: NEPE 18:46
DX: F43.20 Adjustment disorder, unspecified (principal); F17.200 Nicotine dependence, unspecified, uncomplicated; E11.9 Type 2 diabetes mellitus without complications; E78.00 Pure hypercholesterolemia, unspecified; Z79.84 Long term (current) use of oral hypoglycemic drugs
CPT/HCPCS: 70450; 71045; 80048; 82550; 84484; 85025; 85610; 85730; 93005; 99285

== ENCOUNTER 2017-09-06 15:17 | Emergency (ER) | payer OTHER ==
[~2017-09-06] VITALS: Ht 193 cm; Wt 110.0 kg
[2017-09-06 15:27] VITALS: BP 148/73; PULSE 112; RESP 21; TEMP 97.7; O2SAT 97
[2017-09-06] MEDS ORDERED: METF1000 PO (15:37)
[2017-09-06] MEDS ORDERED: SODIUM CHLOR 0.9% 1000 ML INJ 1,000 ML IV ONE (15:45)
[2017-09-06] MEDS ORDERED: SODIUM CHLORIDE 0.9% FLUSH 10 ML FLUSH IVF PRN (15:45)
[2017-09-06 15:49] VITALS: O2SAT 96
--- NOTE | 2017-09-06 16:06 | PD ---
HPI Chief Complaint: Cardiac Complaint Time Seen by Provider: 15:23 Travel History International Travel<30 days: No Contact w/Intl Traveler<30days: No History of Present Illness HPI 61-year-old male presents to the emergency department for evaluation of palpitations. Patient states that he has been under a lot of stress as his 31- year-old son last week. Patient states that has heart felt like it was racing. Patient was seen last week for grief reaction. Patient has PMHX of HTN, active smoker, [place], obesity, DM. Patient states he drank alcohol last night. Patient denies any headaches. He denies any chest pain. No abdominal pain. No nausea, vomiting, diarrhea. 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 Ashby, but heard he was no longer with the [facility]. Patient states he is starting to feel better. No exacerbating or alleviating factors. Moderate severity. PFSH Past Medical History Hx Anticoagulant Therapy: Yes (BRINLINTA ) Cancer: No Cardiac Catheterization: Yes Cardiovascular Problems: Yes High Cholesterol: Yes Diabetes: Yes Patient Takes Glucophage: Yes Diminished Hearing: No Diverticulitis: Yes Endocrine: Yes Gastrointestinal Disorders: Yes (DIVERTICULITIS) Genitourinary: No Heparin Induced Thrombocytopen: No Immune Disorder: No Implanted Vascular Access Dvce: No Musculoskeletal: No Neurologic: No Psychiatric: No Reproductive: No Respiratory: No Immunizations Current: Yes Sickle Cell Disease: No Past Surgical History Abdominal Surgery: Yes (removal of sigmoid colon due to diverticulitis) Coronary Stent: Yes Other Surgery: Yes Social History Alcohol Use: Yes (RECENTLY STARTED DRINKING AGAIN AFTER OF SON) Tobacco Use: Yes (1/2 ppd) Substance Use: No Allergies-Medications (Allergen,Severity, Reaction): Coded Allergies: acetaminophen (Unverified Allergy, Intermediate, ITCHING, 09/06/17) codeine (Unverified Allergy, Intermediate, ITHCHING, 09/06/17) oxycodone (Unverified Allergy, Intermediate, ITCHING, 09/06/17) hydromorphone (Unverified Adverse Reaction, Severe, HALLUCINATIONS, ) diatrizoate meglumine (Unverified Adverse Reaction, Intermediate, RASH, SKIN PEELING, 09/06/17) gadobenic acid (Unverified Adverse Reaction, Intermediate, RASH, SKIN PEELING, 09/06/17) gadodiamide (Unverified Adverse Reaction, Intermediate, RASH, SKIN PEELING , 09/06/17) gadoteridol (Unverified Adverse Reaction, Intermediate, RASH, SKIN PEELING , 09/06/17) iodixanol (Unverified Adverse Reaction, Intermediate, RASH, SKIN PEELING, 09/06/17) iohexol (Unverified Adverse Reaction, Intermediate, RASH, SKIN PEELING, ) Reported Meds & Prescriptions Reported Meds & Active Scripts Active Brilinta (Ticagrelor) 90 Mg Tab 90 Mg PO BID Metoprolol Tartrate 25 Mg Tab 12.5 Mg PO BID Lisinopril 5 Mg Tab 5 Mg PO DAILY Hydrocodone-Acetaminophen 5-325 mg Tab 1 Tab PO Q8H PRN Atorvastatin (Atorvastatin Calcium) 80 Mg Tab 80 Mg PO DAILY [Aspirin Chew] 81 MG Chew 81 Mg PO DAILY Reported Metformin (Metformin HCl) 1,000 Mg Tab 1,000 Mg PO BIDPC Review of Systems Except as stated in HPI: all other systems reviewed are Neg Physical Exam Narrative GENERAL: Well-nourished, well-developed male patient, afebrile. SKIN: Focused skin assessment warm/dry. HEAD: Normocephalic. Atraumatic. EYES: No scleral icterus. No injection or drainage. NECK: Supple, trachea midline. No JVD or lymphadenopathy. CARDIOVASCULAR: Regular rhythm without murmurs, gallops, or rubs. Patient is slightly tachycardic with heart rate of 102. RESPIRATORY: Breath sounds equal bilaterally. No accessory muscle use. Lung sounds are clear to auscultation. GASTROINTESTINAL: Abdomen soft, non-tender, nondistended. MUSCULOSKELETAL: No cyanosis, or edema. BACK: Nontender without obvious deformity. No CVA tenderness. Data Data Last Documented VS Vital Signs Date Time Temp Pulse Resp B/P (MAP) Pulse Ox O2 Delivery O2 Flow Rate FiO2 09/06/17 17:45 87 18 132/86 (101) 97 Room Air 09/06/17 15:27 97.7 Orders Orders Electrocardiogram (09/06/17 15:39) Basic Metabolic Panel (Bmp) (09/06/17 15:39) Ckmb (Isoenzyme) Profile (09/06/17 15:39) Complete Blood Count With Diff (09/06/17 15:39) Magnesium (Mg) (09/06/17 15:39) Prothrombin Time / Inr (Pt) (09/06/17 15:39) Act Partial Throm Time (Ptt) (09/06/17 15:39) Troponin I (09/06/17 15:39) Chest, Single Ap (09/06/17 15:39) Ecg Monitoring (09/06/17 15:39) Bilateral Bp Monitoring (09/06/17 15:39) Iv Access Insert/Monitor (09/06/17 15:39) Oximetry (09/06/17 15:39) Oxygen Administration (09/06/17 15:39) Sodium Chloride 0.9% Flush (Ns Flush) (09/06/17 15:45) Sodium Chlor 0.9% 1000 Ml Inj (Ns 1000 M (09/06/17 15:45) CKMB (09/06/17 15:45) CKMB% (09/06/17 15:45) Electrocardiogram (09/06/17 ) Creatine Kinase (Cpk) (09/06/17 18:32) Troponin I (09/06/17 18:32) Labs Laboratory Tests Test 09/06/17 15:45 09/06/17 18:35 White Blood Count 7.2 TH/MM3 Red Blood Count 4.46 MIL/MM3 Hemoglobin 14.5 GM/DL Hematocrit 41.9 % Mean Corpuscular Volume 94.0 FL Mean Corpuscular Hemoglobin 32.5 PG Mean Corpuscular Hemoglobin Concent 34.6 % Red Cell Distribution Width 14.5 % Platelet Count 232 TH/MM3 Mean Platelet Volume 7.0 FL Neutrophils (%) (Auto) 66.1 % Lymphocytes (%) (Auto) 28.2 % Monocytes (%) (Auto) 4.2 % Eosinophils (%) (Auto) 1.0 % Basophils (%) (Auto) 0.5 % Neutrophils # (Auto) 4.7 TH/MM3 Lymphocytes # (Auto) 2.0 TH/MM3 Monocytes # (Auto) 0.3 TH/MM3 Eosinophils # (Auto) 0.1 TH/MM3 Basophils # (Auto) 0.0 TH/MM3 CBC Comment DIFF FINAL Differential Comment Prothrombin Time 10.7 SEC Prothromb Time International Ratio 1.1 RATIO Activated Partial Thromboplast Time 28.1 SEC Blood Urea Nitrogen 12 MG/DL Creatinine 0.93 MG/DL Random Glucose 235 MG/DL Calcium Level 8.6 MG/DL Magnesium Level 2.0 MG/DL Sodium Level 137 MEQ/L Potassium Level 3.8 MEQ/L Chloride Level 101 MEQ/L Carbon Dioxide Level 23.7 MEQ/L Anion Gap 12 MEQ/L Estimat Glomerular Filtration Rate 83 ML/MIN Total Creatine Kinase 212 U/L 205 U/L Creatine Kinase MB 7.3 NG/ML Troponin I LESS THAN 0.02 NG/ML LESS THAN 0.02 NG/ML MDM Medical Decision Making Medical Screen Exam Complete: Yes Emergency Medical Condition: Yes Medical Record Reviewed: Yes Differential Diagnosis Anxiety versus grief reaction versus ACS versus electrolyte abnormality versus dehydration Narrative Course 61-year-old male presents to the emergency department for evaluation of palpitations and feeling like his heart was racing. He denies any other symptoms or complaints other than feeling stressed out due to his son recently passing away. EKG, CBC, BMP, CK, magnesium, troponin, PTT, PT/INR, chest x-ray ordered and pending. Patient is given normal saline 1 L IV bolus. EKG shows SR, HR 102, no acute ST changes. CBC shows no acute abnormality. BMP shows hyperglycemia of 0.02 Magnesium is 2.0. CK is 212. Troponin is less than 0.02. Coags are unremarkable. Chest x-ray shows no acute cardiopulmonary disease. I discussed the case with my attending physician, Dr. Swan, who recommends delta EKG, CK, troponin. EKG shows no changes. CK is 205. Troponin is less than 0.02. Patient is requesting to be discharged home. He denies any chest pain. He is instructed to follow-up with his primary care physicians and label press operator. He is return here for any worsening of symptoms. Diagnosis Primary Impression: Anxiety Additional Impression: Palpitations Patient Instructions: Anxiety (ED), General Instructions Additional Instructions: Follow-up with your primary care physician and label press operator. Return to the emergency department for any acute worsening of symptoms Med/Other Pt SpecificInfo: No Change to Meds Disposition: 01 DISCHARGE HOME Condition: Stable Yu Guzman ESTELLE September 06, 2017 16:06
[2017-09-06 16:10] LABS: AUTOMATED NEUTROPHIL # 4.7 TH/MM3 (1.8-7.7); BASOPHIL % 0.5 % (0.0-2.0); EOSINOPHIL # 0.1 TH/MM3 (0-0.4); HEMATOCRIT 41.9 % (39.0-51.0); HEMOGLOBIN 14.5 GM/DL (13.0-17.0); LYMPH % 28.2 % (9.0-44.0); MEAN CORPUSCULAR HEMOGLOBIN 32.5 PG (27.0-34.0); MEAN CORPUSCULAR HGB CONC 34.6 % (32.0-36.0); MONO % 4.2 % (0.0-8.0); MONOCYTE # 0.3 TH/MM3 (0-0.9); NEUT % 66.1 % (16.0-70.0); PLATELET COUNT 232 TH/MM3 (150-450); RED BLOOD COUNT 4.46 MIL/MM3 (4.50-5.90); RED CELL DISTRIBUTION WIDTH 14.5 % (11.6-17.2); WHITE BLOOD COUNT 7.2 TH/MM3 (4.0-11.0)
--- NOTE | 2017-09-06 16:19 | RADRPT ---
EXAM DATE/TIME: 09/06/2017 15:57 [facility] COMPARISON: CHEST SINGLE AP, August 28, 2017, 19:58. INDICATIONS : Elevated heart rate. MEDICAL HISTORY : Hypertension. Myocardial infarction. SURGICAL HISTORY : Stents ENCOUNTER: Initial ACUITY: 1 day PAIN SCORE: 0/10 LOCATION: Bilateral chest FINDINGS: A single view of the chest demonstrates the lungs to be symmetrically aerated without evidence of mas s, infiltrate or effusion. The cardiomediastinal contours are unremarkable. Osseous structures are intact. CONCLUSION: 1. No acute cardiopulmonary disease. Pj Judd MD on September 06, 2017 at 16:17 Board Certified Radiologist. This report was verified electronically.
[2017-09-06 16:22] LABS: INTERNATIONAL NORMALIZED RATIO 1.1 RATIO; PROTHROMBIN TIME - PATIENT 10.7 SEC (9.8-11.6)
[2017-09-06 16:44] VITALS: BP 126/71; PULSE 89; RESP 17; O2SAT 97
[2017-09-06 16:49] LABS: BLOOD UREA NITROGEN 12 MG/DL (7-18); CALCIUM 8.6 MG/DL (8.5-10.1); CREATININE 0.93 MG/DL (0.60-1.30); GLOMERULAR FILTRATION RATE 83 ML/MIN (>89); GLUCOSE,RANDOM 235 MG/DL (74-106); SODIUM (NA) 137 MEQ/L (136-145)
[2017-09-06 16:50] LABS: BICARBONATE 23.7 MEQ/L (21.0-32.0); CHLORIDE 101 MEQ/L (98-107); TROPONIN I LESS THAN 0.02 NG/ML (0.02-0.05)
--- NOTE | 2017-09-06 17:42 | EKG ---
Date Performed: 09/06/2017 Time Performed: 15:31:31 PTAGE: 61 years EKG: SINUS TACHYCARDIA INCOMPLETE RIGHT BUNDLE BRANCH BLOCK ABNORMAL RHYTHM ECG NO PREVIOUS TRACING DOCTOR: Maynor Smith Interpretating Date/Time 09/06/2017 17:41:16
[2017-09-06 17:45] VITALS: BP 132/86; PULSE 87; RESP 18; O2SAT 97
[2017-09-06 19:26] LABS: TROPONIN I LESS THAN 0.02 NG/ML (0.02-0.05)
[2017-09-06 19:51] VITALS: BP 122/70
--- NOTE | 2017-09-06 22:41 | EKG ---
Date Performed: 09/06/2017 Time Performed: 18:34:59 PTAGE: 61 years EKG: Sinus rhythm POSSIBLE RIGHT VENTRICULAR CONDUCTION DELAY BORDERLINE ECG PREVIOUS TRACING : 09/06/2017 15.31 No significant change from previous tracing noted. DOCTOR: Maynor Smith Interpretating Date/Time 09/06/2017 22:39:43
== END 2017-09-06 20:02 | disposition home or self-care (01) ==
LOC: NEPC 15:17
DX: F41.9 Anxiety disorder, unspecified (principal); R00.2 Palpitations; R94.31 Abnormal electrocardiogram [ECG] [EKG]; I10 Essential (primary) hypertension; E11.9 Type 2 diabetes mellitus without complications; E78.00 Pure hypercholesterolemia, unspecified; E66.9 Obesity, unspecified; F17.200 Nicotine dependence, unspecified, uncomplicated; Z79.01 Long term (current) use of anticoagulants; Z79.84 Long term (current) use of oral hypoglycemic drugs; Z86.79 Personal history of other diseases of the circulatory system; Z87.19 Personal history of other diseases of the digestive system
CPT/HCPCS: 71045; 80048; 82550; 82552; 83735; 84484; 85025; 85610; 85730; 93005; 99285; J7030